=== PATIENT | female | born 1940 | race Caucasian/White ===

== ENCOUNTER 2024-11-28 13:14 | Outpatient (CLI) | payer MEDICARE, SELFPAY ==
--- NOTE | ~2024-11-28 | CT_ITS ---
CT of the Abdomen and Pelvis: Indication: Microscopic hematuria Technique: 2.5 mm axial scans were obtained through the abdomen and pelvis prior to and following in travenous administration of 130 cc of Omnipaque 350. Dose reduction technique was used on this scan b y utilizing automated exposure control and iterative reconstruction technique. The dose-length produc t (DLP) was 1622.71 mGy-cm. Findings: Scans through the lung bases are unremarkable. The liver, spleen, pancreas, and right adrenal gland are within normal limits. There is a 3.9 cm left adrenal mass with coarse calcification and macroscopic fat, compatible with myelolipoma. Small layer ing gallstones are present. Probable bilateral nonobstructing renal stones, largest in the left kidne y measuring 11 mm in diameter. No ureteral stone or hydronephrosis on either side. There are atherosc lerotic calcifications of the aorta. No lymphadenopathy. No bowel obstruction or bowel wall thickening. There is no evidence to suggest acute appendicitis. Images through the pelvis were performed. Probable diffuse urinary bladder wall thickening with mild perivesical inflammatory stranding. No adnexal mass. No ascites. There is mild compression deformity of L2, possibly acute. There is advanced degenerative change from L4 through S1.. Impression: Cystitis. Correlate with urinalysis. Nonobstructing nephrolithiasis, as detailed above. Cholelithiasis. L2 compression fracture, possibly acute. 3.9 cm left adrenal myelolipoma. Reviewed, dictated [place] [facility] Impression: Cystitis. Correlate with urinalysis. Nonobstructing nephrolithiasis, as detailed above. Cholelithiasis. L2 compression fracture, possibly acute. 3.9 cm left adrenal myelolipoma.
--- OUTSIDE RECORDS SUMMARY | 2024-11-28 13:18 | XMS_ITS | Clinical Summary ---
Author Organization [facility] Address [address] [place] [address] Care Team Providers Care Feller Seam Operator Name Role Phone Dean Britt MD Primary Care Provider [phone] Source Comments [facility],non-owned Affiliates and Associated Physician Practices is amultiple site organization consisting of ambulatory clinics and hospital sitesin [place], [place], [place] and [place]. This disclosure is being madepursuant to the Care Everywhere program and may not contain all information available regarding this patient. Last updated [facility] Allergies Active Allergy Reactions Criticality Noted Date Comments Ampicillin Urticaria 06/13/2010 Codeine Rash Low 06/13/2010 Acetaminophen Rash Low 06/13/2010 Medications * Be aware that medications may not be up to date on this document. Alwaysverify current medications with the patient. niacin CR (NIASPAN) 500 MG tablet Take 500 mg by mouth at bedtime. Active therapeutic multivitamin-m inerals (THERAGRAN-M) tablet Take 1 Tab by mouth daily with food. Active bimatoprost (LUMIGAN) 0.03 % ophthalmic solution Instill 1 Drop into both eyes at bedtime. Active DULoxetine (CYMBALTA) 60 MG capsuleIndicat ions:Elevated liver enzymes Take 60 mg by mouth every morning 8 Active BYDUREON 2 MG injectionIndic ations:Elevate d liver enzymes 2 mg by Injection route every 7 days 8 Active glimepiride (AMARYL) 2 MG tabletIndicati ons:Elevated liver enzymes Take 2 mg by mouth 2 times daily 8 Active levothyroxine (SYNTHROID) 50 MCG tabletIndicati ons:Elevated liver enzymes Take 50 mcg by mouth daily before breakfast 8 Active sotalol, AF, 80 MG tabletIndicati ons:Elevated liver enzymes Take 80 mg by mouth 2 times daily 8 Active cetirizine (ZYRTEC ALLERGY) 10 MG tabletIndicati ons:Elevated liver enzymes Take 10 mg by mouth once daily as needed Active alirocumab (PRALUENT) 150 MG/ML injectionIndic ations:Elevate d liver enzymes Inject 150 mg subcutaneously every 14 days Active aspirin (ASPIRIN) 325 MG tablet Take 325 mg by mouth once daily Active vitamin E (TOCOPHERYL) 400 UNIT capsule Take 400 Units by mouth once daily Active Multiple Vitamins-Juana Diaz als (PRESERVISION AREDS) Take 1 capsule by mouth 2 times daily Active fish oil/omega-3 fatty acids (PROMEGA;CARDI -OMEGA 3) 1000 MG capsule Take 2,000 mg by mouth 2 times daily with morning and evening meal Active metFORMIN ER 24hr (GLUCOPHAGE XR) 500 MG tablet Take 2 tablets by mouth daily with dinner Resume 08/30. 9 Active lisinopril (PRINIVIL; ZESTRIL) 20 MG tabletIndicati ons:Elevated liver enzymes Take 1 tablet by mouth 2 times daily 9 Active furosemide (LASIX) 20 MG tablet Take 20 mg by mouth as needed Active amitriptyline (ELAVIL) 12.5 MG tablet Take 25 mg by mouth at bedtime Active Insulin Degludec (TRESIBA) 100 UNIT/ML SOLN Inject 36 Units subcutaneously at bedtime Active apixaban (ELIQUIS) 5 MG tablet Take 1 tablet by mouth 2 times daily 180 tablet 3 9 Active Active Problems Problem Noted Date Diagnosed Date Bilateral carotid artery stenosis 08/27/2018 Cerebrovascular accident (CVA) 07/31/2018 Metabolic syndrome 01/18/2018 NAFLD (nonalcoholic fatty liver disease) 018 Overview (03/12/2018): [place] 01/2017, Hepatomegaly 19 cm 03/12/18 Fibroscan CAP 395, E 9.8 kPa Elevated liver enzymes 01/17/2018 Essential hypertension 01/17/2018 Atrial fibrillation 01/17/2018 Other hyperlipidemia 01/17/2018 Diabetes mellitus type 2, controlled, without co mplications 01/17/2018 Immunizations Immunization Administration Dates Next Due PNEUMOCOCCAL PPSV23 06/14/2010 Social History Tobacco Use Types Packs/Day Years Used Date Smoking Tobacco: Never Smokeless Tobacco: Never Alcohol Use Standard Drinks/Week Comments Yes 0 (1 standard drink = 0.6 oz pur e alcohol) Rarely Comments Unknown Sex and Gender Information Value Date Recorded Sex Assigned at Not on file Legal Sex Female 9:55 AM 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 SERVICES ANALYST Gender Identity Not on file Sexual Orientation Not on file Last Filed Vital Signs Vital Sign Reading Time Taken Comments Blood Pressure 136/64 10/23/2018 12:06 PM CDT Pulse 71 10/23/2018 12:06 PM CDT Temperature 36.7 C (98.1 F) 08/28/2018 12:00 PM CDT Respiratory Rate 18 10/23/2018 12:06 PM CDT Oxygen Saturation 97% 10/23/2018 12:06 PM CDT Inhaled Oxygen Concentration 21% 06/15/2010 1 0:35 AM BUSINESS SERVICES ANALYST Weight 78.5 kg (173 lb) 10/23/2018 12:06 PM CDT Height 157.5 cm (5' 2) 10/23/2018 12:06 PM CDT Body Mass Index 31.64 10/23/2018 12:06 PM CDT Plan of Treatment Health Maintenance Due Date Last Done Comments BONE DENSITY TESTING 1942 DTAP/TDAP/TD VACCINES (1 - Tdap) 1961 DIABETES-STATIN 1982 ZOSTER VACCINE (1 of 2) 1992 PNEUMOCOCCAL VACCINE 50+ (2 of 2 - PCV) 06/14/2011 06/14/2010 Respiratory Syncytial Virus (RSV) Vaccine Pt: or over 60 yrs (1 - 1-dose 75+ series) 2017 DIABETES-FOOT EXAM WITH MONOFILAMENT 08/05/2018 DIABETES-HGB A1C 02/01/2019 08/01/2018, 11/30/2017 DIABETES-SERUM CREATININE 08/28/20192018, 11/30/2017, 06/14/2010 COVID-19 VACCINE ( - 2023- season) 2024 DEPRESSION SCREENING 05/07/2024 DIABETES - URINE PROTEIN SCREENING 05/07/2024 INFLUENZA VACCINE (#1) 2025 8, 02/27/2017, 02/20/2014, Additional history exists HEPATITIS B VACCINE Aged Out No longe r eligible based on patient's age to complete this topic HIB VACCINE Aged Out No longer eligi ble based on patient's age to complete this topic HPV VACCINE Aged Out No longer eligi ble based on patient's age to complete this topic MENINGOCOCCAL (Group B) VACCINE SHARED DECISION-MAKING Aged Out No longer eligible based on patient's age to complete this topic MENINGOCOCCAL GROUPS A/C/Y/W VACCINE Aged Out No longer eligible based on patient's age to complete this topic Procedures Procedure Name Priority Date/Time Associated Diagnosis Comments BASIC METABOLIC PANEL (CALCIUM TOTAL) Routine 08/27/2018 8:43 AM CDT Bilateral carotid artery stenosis HEMOGLOBIN A1C AM Draw 08/01/2018 4:16 AM CDT from Last 3 Months or Most Recently Relevant to Health Maintenance Results * (ABNORMAL) BASIC METABOLIC PANEL (CALCIUM TOTAL) (08/27/2018 8:43 AM CDT) [facility] Glucose 212(H) 74 - 106 mg/dL 08/27/2018 9:03 AM CDT [facility] Sodium 136 136 - 145 mmol/L 08/27/2018 9:03 AM CDT [facility] Potassium 4.5 3.5 - 5.1 mmol/L 08/27/2018 9:03 AM CDT [facility] Chloride 102 98 - 107 mmol/L 08/27/2018 9:03 AM CDT [facility] CO2 23 23 - 31 mmol/L 08/27/2018 9:03 AM CDT [facility] Calcium 9.1 8.4 - 10.2 mg/dL 08/27/2018 9:03 AM CDT [facility] Anion Gap 11 8 - 16 mmol/L 08/27/2018 9:03 AM CDT [facility] BUN 17 9.8 - 20.1 mg/dL 08/27/2018 9:03 AM CDT [facility] Creatinine 0.52(L) 0.55 - 1.02 mg/dL 08/27/2018 9:03 AM CDT [facility] eGFR by MDRD >60 mL/min/1.7 3m2 08/27/2018 9:03 AM CDT [facility] eGFR by MDRD >60 mL/min/1.7 3m2 08/27/2018 9:03 AM CDT [facility] Blood BLOOD SPECIMEN / Unknown Venipuncture / Unknown 08/27/2018 8:43 AM CDT 08/27/2018 8:44 AM CDT Davi Briceno MD LAB - CHEMISTRY ORDERABLES Fi nal Result Performing Organization Address [facility] de Phone Number [facility] [address] [place] [address] * (ABNORMAL) HEMOGLOBIN A1C (08/01/2018 4:16 AM CDT) [facility] Hemoglobin A1c 7.5(H) 4.0 - 6.1 % 08/01/2018 6:06 AM CDT [facility] Estimated Average Glucose 169 mg/dL 08/01/2018 6:06 AM CDT [facility] Blood BLOOD SPECIMEN / Unknown Venipuncture / Unknown 08/01/2018 4:16 AM CDT 08/01/2018 5:48 AM CDT Narrative [facility] - 08/01/2018 6:06 AM CDT Attention clinician: Reference Range has changed. Davi Briceno MD LAB - CHEMISTRY ORDERABLES Fi nal Result Performing Organization Address [facility] de Phone Number [facility] [id number] [place] [phone] from Last 3 Months or Most Recently Relevant to Health Maintenance Insurance [facility] MEDICARE ADV [facility] MEDICARE ADV Advance Directives * Full Code (Latest Code Status on File) Date Activated Date Inactivated Comments 07/31/2018 8:56 PM 08/02/2018 5:57 PM * Full Code Date Activated Date Inactivated Comments 06/13/2010 10:48 PM 06/16/2010 12:33 AM Care Teams Feller Seam Operator Relationship Specialty Start Date End Date Dean Britt MD PCP - General 01/17/18
--- OUTSIDE RECORDS SUMMARY | 2024-11-28 13:18 | XMS_ITS | Data Portability ---
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 Name Role Phone HUMPHREY BRITT Primary Care Provider GEOFFREY PRATT Referring Provider [phone] HUMPHREY BRITT Primary Care Provider Assessment Encounter Date Assessment Date Assessment LastModified by Organization Details LastModified Time 12/18/2022 12/18/2022 Blood work order diagnosis discussed immunization given follow-up in 4 months Not available 12/18/2022 22:53:29 04/23/2023 04/23/2023 Obtain labs we will see whether we can get her approved for Ozempic I will get a thyroid ultrasound Not available 04/27/2023 21:04:42 03/26/2024 03/26/2024 83-year-old patient presents today with left ankle pain after an injury on 03/16. She states she was standing when her foot rolled. She felt pain in the ankle. She presented to the emergency room where x-rays were taken and she was placed in a boot. She presents today in the boot. States her pain is 1/10. She states she has tried walking without the boot and feels minimal pain. She is not taking any medications for pain. Review of systems per patient questionnaire Imaging: X-rays reviewed show possible avulsion of the lateral malleolus on x-rays taken the day after her injury. X-rays today show no acute bony abnormality or fracture. physical exam: Slightly antalgic gait using a walker without the boot. Tenderness to palpitation over lateral malleolus. No pain over the soft tissues, medial ankle, or over foot. Able to perform gentle ankle range of motion and wiggle toes. Sensation intact throughout. She would like to come out of the boot. We will fit her for a lace-up ankle brace and have her slowly transition from the boot into the brace. We discussed wearing a supportive shoe and continuing to use the walker if that is what she normally does. She states that she has had ankle sprains in the past. We discussed that physical therapy may be beneficial to help strengthen the ankle. She is not interested in that at this time. We can see her back as needed for pain. She is in agreement with this plan. [email or web address] Not available 03/26/2024 16:38:56 07/23/2024 07/23/2024 Time spent with patient included: preparing to see patient by reviewing tests, obtaining and reviewing history, medical examination and evaluation, counseling and educating the patient, ordering medications and tests, documenting clinical information in EHR, independently interpreting results and communicating results to the patient for a total of 52 minutes. [email or web address] Not available 07/24/2024 09:15:53 Plan of Treatment Reminders Order Date Submit Date Provider Last Modified By Organization Details Last Modified Time Details Appointments None recorded. Lab alpha-1-an titrypsin (aat) phenotype, serum 2024 025 [facility] (Lab), [address] [place], [address], 5 08:54:16 BNP (B-type natriureti c peptide), serum or plasma 2024 025 [facility] (Lab), [address] [place], [address], 5 23:45:58 ige, total, serum [email or web address] [place] [address] (Lab), [address] [place], [address], 5 10:43:57 tb (M tuberculos is), ifn-gamma esme, blood [address] [place] [address] (Lab), [address] [place], [address], 5 10:43:58 igg subclasses 1+2+3+4, serum 2024 025 [email or web address] 2 [facility] (Lab), [address] [place], [address], 5 10:43:58 respirator y allergen panel, [facility] A, serum 2024 025 2 [facility] (Lab), [address] [place], [address], 5 10:43:58 respirator y allergen panel - [facility] b 2024 025 [email or web address] 2 [facility] (Lab), [address] [place], [address], 5 10:43:58 eosinophil s, quant, blood 2024 025 [email or web address] 2 [facility] (Lab), [address] [place], [address], 5 10:43:58 glycohemog lobin, total, blood 2022 023 [facility] (Lab), [address] [place], [address], 3 20:54:14 lipid panel, serum 2022 023 [facility] (Lab), [address] [place], [address], 3 18:32:34 CMP, serum or plasma 2022 023 [facility] (Lab), [address] [place], [address], 3 18:32:45 CBC w/ auto diff 2022 023 [facility] (Lab), [address] [place], [address], 3 18:24:32 T4, free, serum 2022 023 [facility] (Lab), [address] [place], [address], 3 18:52:50 TSH, serum or plasma 2022 023 [facility] (Lab), [address] [place], [address], 3 18:56:04 T3, free, serum or plasma 2022 023 [facility] (Lab), [address] [place], [address], 3 18:52:55 glycohemog lobin, total, blood 2022 023 [facility] (Lab), [address] [place], [address], 3 20:00:08 T4, free, serum 2022 023 [facility] (Lab), [address] [place], [address], 3 18:07:48 T3, free, serum or plasma 2022 023 [facility] (Lab), [address] [place], [address], 3 18:07:52 TSH, serum or plasma 2022 023 [facility] (Lab), [address] [place], [address], 3 18:18:10 CBC w/ auto diff 2022 023 [facility] (Lab), [address] [place], [address], 3 17:08:12 CMP, serum or plasma 2022 023 [facility] (Lab), [address] [place], [address], 3 18:06:07 lipid panel, serum 2022 023 [facility] (Lab), [address] [place], [address], 3 18:06:10 Referral None recorded. Procedures None recorded. Surgeries None recorded. Imaging polysomnog suzi, diagnostic , 6 yrs or older - Updated order 2024 025 [facility], [address] [place], [address], 5 12:41:33 XR, chest, 2 view 2024 [email or web address] [place] [address] ([facility]), [address] [place], [address], 5 09:25:20 US, thyroid 2022 023 cyl [facility] ([facility]), [address] [place], [address], 4 10:44:46 Medication Orders Ozempic 0.25 mg or 0.5 mg (2 mg/3 mL) subcutaneo us pen injector 2022 023 [facility], [address] , [place], [place], [id number], 4 13:40:23 fluconazol e 150 mg tablet 2022 023 [email or web address] [facility] #24671, [address], [place], [place], [id number], 4 16:02:06 Tresiba FlexTouch U-200 insulin 200 unit/mL (3 mL) subcutaneo pen [address] [facility]21964, [address], [place], [place], [id number], 4 13:38:44 glipizide 5 mg tablet [address] [facility]37664, [address], [place], [place], [id number], 4 13:39:08 Bydureon BCise 2 mg/0.85 mL [facility] tor [address] [facility]16174, [address], [place], [place], [id number], 4 13:39:31 metformin ER 500 mg tablet,ext ended release 24 hr [address] [facility]85502, [address], [place], [place], [id number], 4 13:38:33 levothyrox ine 50 mcg tablet [address] [facility] #43072, [address], [place], [place], [id number], 4 13:39:55 Patient TargetsNo targets recorded. Patient Instructions Encounter Date Encounter Id Patient Instructions Last Modified By Organization Details Last Modified Time 07/23/2024 [id number] complete PFT w/ post bronchodilator spirometry* [email or web address] Not available 10/07/2024 14:39:14 Reason for Referral None Reported. Results Created Date Observation Date Name Description Value Unit Range Abnormal Flag Note LastModifiedBy Organization Detail LastModifiedTime 12/19/19 23 12/18/2022 CBC/C OMPLE TE BLD COUNT W/DIF F white blood cells 8.6 x10'3 /uL 4.2-10 .8 Not Available [facility] (Lab) [address] [place], [address], 12/18/2022 17:37:30 12/19/19 23 12/18/2022 CBC/C OMPLE TE BLD COUNT W/DIF F red blood cells 5.59 x10'6 /uL 3.80-5 .20 high Not Available [facility] (Lab) [address] [place], [address], 12/18/2022 17:37:30 12/19/19 23 12/18/2022 CBC/C OMPLE TE BLD COUNT W/DIF F hemoglobin 13.9 g/dL 12.0-1 5.6 Not Available [facility] (Lab) [address] [place], [address], 12/18/2022 17:37:30 12/19/19 23 12/18/2022 CBC/C OMPLE TE BLD COUNT W/DIF F hematocrit 47.1 % 35.7-4 5.7 high Not Available [facility] (Lab) [address] [place], [address], 12/18/2022 17:37:30 12/19/19 23 12/18/2022 CBC/C OMPLE TE BLD COUNT W/DIF F mean red cell volume 84.3 fL 82.0-9 9.0 Not Available [facility] (Lab) [address] [place], [address], 12/18/2022 17:37:30 12/19/19 23 12/18/2022 CBC/C OMPLE TE BLD COUNT W/DIF F mean red cell hemoglobin 24.9 pg 27.0-3 3.0 low Not Available [facility] (Lab) [address] [place], [address], 12/18/2022 17:37:30 12/19/19 23 12/18/2022 CBC/C OMPLE TE BLD COUNT W/DIF F mean RBC HGB concentratio n 29.5 g/dL 31.0-3 6.0 low Not Available [facility] (Lab) [address] [place], [address], 12/18/2022 17:37:30 12/19/19 23 12/18/2022 CBC/C OMPLE TE BLD COUNT W/DIF F red cell distribution width 19.6 % 11.8-1 5.5 high Not Available [facility] (Lab) [address] [place], [address], 12/18/2022 17:37:30 12/19/19 23 12/18/2022 CBC/C OMPLE TE BLD COUNT W/DIF F platelets 302 x10'3 /uL 150-40 0 Not Available [facility] (Lab) [address] [place], [address], 12/18/2022 17:37:30 12/19/19 23 12/18/2022 CBC/C OMPLE TE BLD COUNT W/DIF F mean platelet volume 10.7 fL 9.0-12 .4 Not Available [facility] (Lab) [address] [place], [address], 12/18/2022 17:37:30 12/19/19 23 12/18/2022 CBC/C OMPLE TE BLD COUNT W/DIF F neutrophils 77.4 % 39.0-7 2.0 high Not Available [facility] (Lab) [address] [place], [address], 12/18/2022 17:37:30 12/19/19 23 12/18/2022 CBC/C OMPLE TE BLD COUNT W/DIF F lymphocytes 11.8 % 16.0-4 7.0 low Not Available [facility] (Lab) [address] [place], [address], 12/18/2022 17:37:30 12/19/19 23 12/18/2022 CBC/C OMPLE TE BLD COUNT W/DIF F monocytes 9.0 % 5.0-12 .0 Not Available [facility] (Lab) [address] [place], [address], 12/18/2022 17:37:30 12/19/19 23 12/18/2022 CBC/C OMPLE TE BLD COUNT W/DIF F eosinophils 0.9 % 1.0-7. 0 low Not Available [facility] (Lab) [address] [place], [address], 12/18/2022 17:37:30 12/19/19 23 12/18/2022 CBC/C OMPLE TE BLD COUNT W/DIF F basophils 0.6 % 0.0-2. 0 Not Available [facility] (Lab) [address] [place], [address], 12/18/2022 17:37:30 12/19/19 23 12/18/2022 CBC/C OMPLE TE BLD COUNT W/DIF F immature granulocytes 0.3 % 0.00-0 .50 Not Available [facility] (Lab) [address] [place], [address], 12/18/2022 17:37:30 12/19/19 23 12/18/2022 CBC/C OMPLE TE BLD COUNT W/DIF F neutrophils, absolute count 6.64 x10'3 /uL 1.5-8. 0 Not Available [facility] (Lab) [address] [place], [address], 12/18/2022 17:37:30 12/19/19 23 12/18/2022 CBC/C OMPLE TE BLD COUNT W/DIF F lymphocytes, absolute count 1.01 x10'3 /uL 1.07-3 .43 low Not Available [facility] (Lab) [address] [place], [address], 12/18/2022 17:37:30 12/19/19 23 12/18/2022 CBC/C OMPLE TE BLD COUNT W/DIF F monocytes, absolute count 0.77 x10'3 /uL 0.29-0 .99 Not Available [facility] (Lab) [address] [place], [address], 12/18/2022 17:37:30 12/19/19 23 12/18/2022 CBC/C OMPLE TE BLD COUNT W/DIF F eosinophils, absolute count 0.08 x10'3 /uL 0.02-0 .53 Not Available [facility] (Lab) [address] [place], [address], 12/18/2022 17:37:30 12/19/19 23 12/18/2022 CBC/C OMPLE TE BLD COUNT W/DIF F basophils, absolute count 0.05 x10'3 /uL 0.01-0 .08 Not Available [facility] (Lab) [address] [place], [address], 12/18/2022 17:37:30 12/19/19 23 12/18/2022 CBC/C OMPLE TE BLD COUNT W/DIF F immature granulocytes ,absolute 0.03 x10'3 /uL 0.00-0 .05 Not Available [facility] (Lab) [address] [place], [address], 12/18/2022 17:37:30 12/19/19 23 12/18/2022 CBC/C OMPLE TE BLD COUNT W/DIF F nucleated red blood cells 0.0 % -0 Not Available [facility] (Lab) [address] [place], [address], 12/18/2022 17:37:30 12/19/19 23 12/18/2022 CBC/C OMPLE TE BLD COUNT W/DIF F NRBC# 0.00 x10'3 /uL Not Available [facility] (Lab) [address] [place], [address], 12/18/2022 17:37:30 12/19/19 23 12/18/2022 CBC/C OMPLE TE BLD COUNT W/DIF F anisocytosis 1+ Not Available [facility] (Lab) [address] [place], [address], 12/18/2022 17:37:30 12/19/19 23 12/18/2022 CBC/C OMPLE TE BLD COUNT W/DIF F poikilocytos is 1+ Not Available [facility] (Lab) [address] [place], [address], 12/18/2022 17:37:30 12/19/19 23 12/18/2022 CBC/C OMPLE TE BLD COUNT W/DIF F hypochromia 1+ Not Available [facility] (Lab) [address] [place], [address], 12/18/2022 17:37:30 12/19/19 23 12/18/2022 COMPR EHENS MICHELLE METAB OLIC PANEL sodium 135 mmol/ L 137-14 5 low Not Available [facility] (Lab) [address] [place], [address], 12/18/2022 18:06:06 12/19/19 23 12/18/2022 COMPR EHENS MICHELLE METAB OLIC PANEL potassium 4.7 mmol/ L 3.5-5. 1 Not Available [facility] (Lab) [address] [place], [address], 12/18/2022 18:06:06 12/19/19 23 12/18/2022 COMPR EHENS MICHELLE METAB OLIC PANEL chloride 99 mmol/ L 98-107 Not Available [facility] (Lab) [address] [place], [address], 12/18/2022 18:06:06 12/19/19 23 12/18/2022 COMPR EHENS MICHELLE METAB OLIC PANEL carbon dioxide 27 mmol/ L 22-30 Not Available [facility] (Lab) [address] [place], [address], 12/18/2022 18:06:06 12/19/19 23 12/18/2022 COMPR EHENS MICHELLE METAB OLIC PANEL anion gap 13.7 mmol/ L 14-22 low Not Available [facility] (Lab) [address] [place], [address], 12/18/2022 18:06:06 12/19/19 23 12/18/2022 COMPR EHENS MICHELLE METAB OLIC PANEL glucose 171 mg/dL 70-99 high Not Available [facility] (Lab) [address] [place], [address], 12/18/2022 18:06:06 12/19/19 23 12/18/2022 COMPR EHENS MICHELLE METAB OLIC PANEL BUN 12 mg/dL 8-19 Not Available [facility] (Lab) [address] [place], [address], 12/18/2022 18:06:06 12/19/19 23 12/18/2022 COMPR EHENS MICHELLE METAB OLIC PANEL creatinine 0.49 mg/dL 0.66-1 .25 low Not Available [facility] (Lab) [address] [place], [address], 12/18/2022 18:06:06 12/19/19 23 12/18/2022 COMPR EHENS MICHELLE METAB OLIC PANEL GFR >60 Refer ence Range : [place] ge GFR Healt hy Adult : >60 mL/mi n/1.7 3 m2 Chron ic Kidne y Disea se: 15-60 mL/mi n/1.7 3 m2 Kidne y Failu re: <15/m L/min /1.73 m2 www.n iddk. nih.g ov The MDRD study equat ion has not been valid ated in child sridevi <18 years of age; pregn ant women ; the elder ly >85 years of age; or in some racia l or ethni c subgr oups, such as Hispa nics. Outsi de the valid ated antione eters , estim ated GFR is less accur ate, requi ring clini lin judgm ent on a case- by-ca se basis . Clini lin inter preta tion for other races and ages must be made by the clini david. The MDRD study equat ion has not been valid ated for the evalu ation of serum creat inine relat ed to nutri rafal l statu s or medic ation usage . For perso ns <18 years of age, a pedia tric GFR calcu lator is avail able on the [facility] websi te: https ://savita loomis.malik raphael/pr nick ahmadi s/kdo qi/gf r_cal culat or Not Available [facility] (Lab) [address] [place], [address], 12/18/2022 18:06:06 12/19/1912/18/2022 COMPR EHENS MICHELLE METAB OLIC PANEL alkaline phosphatase 91 U/L 38-126 Not Available [facility] (Lab) [address] [place], [address], 12/18/2022 18:06:06 12/19/1912/18/2022 COMPR EHENS MICHELLE METAB OLIC PANEL alanine aminotransfe rase 31 U/L 0-35 Not Available [facility] (Lab) [address] [place], [address], 12/18/2022 18:06:06 12/19/19 23 12/18/2022 COMPR EHENS MICHELLE METAB OLIC PANEL aspartate aminotransfe rase 39 U/L 15-37 high Not Available [facility] (Lab) [address] [place], [address], 12/18/2022 18:06:06 12/19/19 23 12/18/2022 COMPR EHENS MICHELLE METAB OLIC PANEL bilirubin, total 0.40 mg/dL 0.20-1 .30 Not Available [facility] (Lab) [address] [place], [address], 12/18/2022 18:06:06 12/19/19 23 12/18/2022 COMPR EHENS MICHELLE METAB OLIC PANEL calcium 8.4 mg/dL 8.4-10 .2 Not Available [facility] (Lab) [address] [place], [address], 12/18/2022 18:06:06 12/19/19 23 12/18/2022 COMPR EHENS MICHELLE METAB OLIC PANEL total protein 7.4 g/dL 6.3-8. 2 Not Available [facility] (Lab) [address] [place], [address], 12/18/2022 18:06:06 12/19/19 23 12/18/2022 COMPR EHENS MICHELLE METAB OLIC PANEL albumin 4.2 g/dL 3.0-4. 4 Not Available [facility] (Lab) [address] [place], [address], 12/18/2022 18:06:06 12/19/19 23 12/18/2022 COMPR EHENS MICHELLE METAB OLIC PANEL globulin 3.2 g/dL 2.6-4. 2 Not Available [facility] (Lab) [address] [place], [address], 12/18/2022 18:06:06 12/19/19 23 12/18/2022 COMPR EHENS MICHELLE METAB OLIC PANEL A/G ratio 1.3 ratio 1.0-2. 0 Not Available [facility] (Lab) [address] [place], [address], 12/18/2022 18:06:06 12/19/19 23 12/18/2022 LIPID PANEL cholesterol 92 mg/dL 140-19 9 low NIH RAIN NSUS RECOM MENDA TION FOR KUSUM STERO L: ADULT CHILD LOW RISK: <200 <170 BORDE RLINE : <200- 239 ----- HIGH RISK: >240 >200 Not Available [facility] (Lab) [address] [place], [address], 12/18/2022 18:06:10 12/19/19 23 12/18/2022 LIPID PANEL triglyceride s 175 mg/dL 0-150 high NIH RAIN NSUS REPOR T RECOM MENDA TION FOR TRIGL YCERI FRANCISCO: ADULT CHILD LOW RISK: <150 ----- BODER LINE: 150-1 99 ----- HIGH RISK: >200 ----- Not Available [facility] (Lab) [address] [place] [address], [address], 12/18/2022 18:06:10 12/19/19 23 12/18/2022 LIPID PANEL HDL cholesterol 51 mg/dL 40- Not Available [facility] (Lab) [address] [place] [address], [address], 12/18/2022 18:06:10 12/19/19 23 12/18/2022 LIPID PANEL LDL cholesterol, calculated 6 mg/dL 0-130 NIH RAIN NSUS REPOR T RECOM MENDA TIONS FOR LDL: ADULT CHILD LOW RISK <130 <110 (OPTI MAL LDL) <100 ----- BORDE RLINE : 130-1 59 ----- HIGH RISK: >160 >130 A TRIGL YCERI DE RESUL T >400 INVAL IDATE S THE CALCU LATIO N FOR LDL FRACT IONAT ION - THE LDL RESUL T WILL NOT BE REPOR ENA. Not Available [facility] (Lab) [address] [place], [address], 12/18/2022 18:06:10 12/19/19 23 12/18/2022 T4 FREE free T4 1.29 NG/dL 0.78-2 .19 Not Available [facility] (Lab) [address] [place], [address], 12/18/2022 18:07:48 12/19/19 23 12/18/2022 T3 FREE free T3 2.9 pg/mL 2.77-5 .27 Not Available [facility] (Lab) [address] [place], [address], 12/18/2022 18:07:52 12/19/19 23 12/18/2022 TSH thyroid-stim ulating hormone 1.740 uIU/m L 0.465- 4.680 Not Available [facility] (Lab) [address] [place], [address], 12/18/2022 18:18:10 12/19/19 23 12/18/2022 HEMOG LOBIN A1C HA1C 9.3 % 4.0-6. 0 high Diabe meg Scree abran Crite zuleika: <5.7% Consi stent with absen ce of diabe meg 5.7-6 .4% Consi stent with incre ased risk for diabe meg (pred iabet es) >OR=6 .5% Consi stent with diabe meg REFER ENCE: Diabe meg Care 2016, 39(Alejandro ppl.1 ):s13 -s22 Not Available [facility] (Lab) [address] [place], [address], 12/18/2022 20:00:08 03/07/20 23 03/07/2023 C DIFFI CILE TOXIN /EPI, DNA toxigenic C.difficile NEGATI VE Not Available [facility] (Lab) [address] [place], [address], 03/07/2023 22:19:10 03/07/20 23 03/07/2023 C DIFFI CILE TOXIN /EPI, DNA 027-nap1-bi strain NEGATI VE 027-N API-B 1 STRAI N RESUL TS ARE CONSI DERED TO BE PRESU MPTIV E. Not Available [facility] (Lab) [address] [place], [address], 03/07/2023 22:19:10 04/23/20 23 04/23/2023 CBC/C OMPLE TE BLD COUNT W/DIF F white blood cells 7.5 x10'3 /uL 4.2-10 .8 Not Available [facility] (Lab) [address] [place], [address], 04/23/2023 18:24:32 04/23/20 23 04/23/2023 CBC/C OMPLE TE BLD COUNT W/DIF F red blood cells 5.48 x10'6 /uL 3.80-5 .20 high Not Available [facility] (Lab) [address] [place], [address], 04/23/2023 18:24:32 04/23/20 23 04/23/2023 CBC/C OMPLE TE BLD COUNT W/DIF F hemoglobin 15.0 g/dL 12.0-1 5.6 Not Available [facility] (Lab) [address] [place], [address], 04/23/2023 18:24:32 04/23/20 23 04/23/2023 CBC/C OMPLE TE BLD COUNT W/DIF F hematocrit 49.0 % 35.7-4 5.7 high Not Available [facility] (Lab) [address] [place], [address], 04/23/2023 18:24:32 04/23/20 23 04/23/2023 CBC/C OMPLE TE BLD COUNT W/DIF F mean red cell volume 89.4 fL 82.0-9 9.0 Not Available [facility] (Lab) [address] [place], [address], 04/23/2023 18:24:32 04/23/20 23 04/23/2023 CBC/C OMPLE TE BLD COUNT W/DIF F mean red cell hemoglobin 27.4 pg 27.0-3 3.0 Not Available [facility] (Lab) [address] [place], [address], 04/23/2023 18:24:32 04/23/20 23 04/23/2023 CBC/C OMPLE TE BLD COUNT W/DIF F mean RBC HGB concentratio n 30.6 g/dL 31.0-3 6.0 low Not Available [facility] (Lab) [address] [facility] [place], [address], 04/23/2023 18:24:32 04/23/20 23 04/23/2023 CBC/C OMPLE TE BLD COUNT W/DIF F red cell distribution width 15.7 % 11.8-1 5.5 high Not Available [facility] (Lab) [address] [place], [address], 04/23/2023 18:24:32 04/23/20 23 04/23/2023 CBC/C OMPLE TE BLD COUNT W/DIF F platelets 322 x10'3 /uL 150-40 0 Not Available [facility] (Lab) [address] [place], [address], 04/23/2023 18:24:32 04/23/20 23 04/23/2023 CBC/C OMPLE TE BLD COUNT W/DIF F mean platelet volume 10.5 fL 9.0-12 .4 Not Available [facility] (Lab) [address] [place], [address], 04/23/2023 18:24:32 04/23/20 23 04/23/2023 CBC/C OMPLE TE BLD COUNT W/DIF F neutrophils 75.1 % 39.0-7 2.0 high Not Available [facility] (Lab) [address] [place], [address], 04/23/2023 18:24:32 04/23/20 23 04/23/2023 CBC/C OMPLE TE BLD COUNT W/DIF F lymphocytes 13.6 % 16.0-4 7.0 low Not Available [facility] (Lab) [address] [place], [address], 04/23/2023 18:24:32 04/23/20 23 04/23/2023 CBC/C OMPLE TE BLD COUNT W/DIF F monocytes 9.7 % 5.0-12 .0 Not Available [facility] (Lab) [address] [place], [address], 04/23/2023 18:24:32 04/23/20 23 04/23/2023 CBC/C OMPLE TE BLD COUNT W/DIF F eosinophils 0.5 % 1.0-7. 0 low Not Available [facility] (Lab) [address] [place], [address], 04/23/2023 18:24:32 04/23/20 23 04/23/2023 CBC/C OMPLE TE BLD COUNT W/DIF F basophils 0.8 % 0.0-2. 0 Not Available [facility] (Lab) [address] [place], [address], 04/23/2023 18:24:32 04/23/20 23 04/23/2023 CBC/C OMPLE TE BLD COUNT W/DIF F immature granulocytes 0.3 % 0.00-0 .50 Not Available [facility] (Lab) [address] [place], [address], 04/23/2023 18:24:32 04/23/20 23 04/23/2023 CBC/C OMPLE TE BLD COUNT W/DIF F neutrophils, absolute count 5.64 x10'3 /uL 1.5-8. 0 Not Available [facility] (Lab) [address] [place], [address], 04/23/2023 18:24:32 04/23/20 23 04/23/2023 CBC/C OMPLE TE BLD COUNT W/DIF F lymphocytes, absolute count 1.02 x10'3 /uL 1.07-3 .43 low Not Available [facility] (Lab) [address] [facility] [place], [address], 04/23/2023 18:24:32 04/23/20 23 04/23/2023 CBC/C OMPLE TE BLD COUNT W/DIF F monocytes, absolute count 0.73 x10'3 /uL 0.29-0 .99 Not Available [facility] (Lab) [address] [place], [address], 04/23/2023 18:24:32 04/23/20 23 04/23/2023 CBC/C OMPLE TE BLD COUNT W/DIF F eosinophils, absolute count 0.04 x10'3 /uL 0.02-0 .53 Not Available [facility] (Lab) [address] [place], [address], 04/23/2023 18:24:32 04/23/20 23 04/23/2023 CBC/C OMPLE TE BLD COUNT W/DIF F basophils, absolute count 0.06 x10'3 /uL 0.01-0 .08 Not Available [facility] (Lab) [address] [place], [address], 04/23/2023 18:24:32 04/23/20 23 04/23/2023 CBC/C OMPLE TE BLD COUNT W/DIF F immature granulocytes ,absolute 0.02 x10'3 /uL 0.00-0 .05 Not Available [facility] (Lab) [address] [place], [address], 04/23/2023 18:24:32 04/23/20 23 04/23/2023 CBC/C OMPLE TE BLD COUNT W/DIF F nucleated red blood cells 0.0 % -0 Not Available [facility] (Lab) [address] [place], [address], 04/23/2023 18:24:32 04/23/20 23 04/23/2023 CBC/C OMPLE TE BLD COUNT W/DIF F NRBC# 0.00 x10'3 /uL Not Available [facility] (Lab) [address] [place], [address], 04/23/2023 18:24:32 04/23/20 23 04/23/2023 LIPID PANEL cholesterol 106 mg/dL 140-19 9 low NIH RAIN NSUS RECOM MENDA TION FOR KUSUM STERO L: ADULT CHILD LOW RISK: <200 <170 BORDE RLINE : <200- 239 ----- HIGH RISK: >240 >200 Not Available [facility] (Lab) [address] [place], [address], 04/23/2023 18:32:34 04/23/20 23 04/23/2023 LIPID PANEL triglyceride s 188 mg/dL 0-150 high NIH RAIN NSUS REPOR T RECOM MENDA TION FOR TRIGL YCERI FRANCISCO: ADULT CHILD LOW RISK: <150 ----- BODER LINE: 150-1 99 ----- HIGH RISK: >200 ----- Not Available [facility] (Lab) [address] [place], [address], 04/23/2023 18:32:34 04/23/20 23 04/23/2023 LIPID PANEL HDL cholesterol 60 mg/dL 40- Not Available [facility] (Lab) [address] [place], [address], 04/23/2023 18:32:34 04/23/20 23 04/23/2023 LIPID PANEL LDL cholesterol, calculated 8 mg/dL 0-130 NIH RAIN NSUS REPOR T RECOM MENDA TIONS FOR LDL: ADULT CHILD LOW RISK <130 <110 (OPTI MAL LDL) <100 ----- BORDE RLINE : 130-1 59 ----- HIGH RISK: >160 >130 A TRIGL YCERI DE RESUL T >400 INVAL IDATE S THE CALCU LATIO N FOR LDL FRACT IONAT ION - THE LDL RESUL T WILL NOT BE REPOR ENA. Not Available [facility] (Lab) [address] [place], [address], 04/23/2023 18:32:34 04/23/2004/23/2023 COMPR EHENS MICHELLE METAB OLIC PANEL sodium 137 mmol/ L 137-14 5 Not Available [facility] (Lab) [address] [place], [address], 04/23/2023 18:32:45 04/23/20 23 04/23/2023 COMPR EHENS MICHELLE METAB OLIC PANEL potassium 4.6 mmol/ L 3.5-5. 1 Not Available [facility] (Lab) [address] [place], [address], 04/23/2023 18:32:45 04/23/20 23 04/23/2023 COMPR EHENS MICHELLE METAB OLIC PANEL chloride 100 mmol/ L 98-107 Not Available [facility] (Lab) [address] [place], [address], 04/23/2023 18:32:45 04/23/20 23 04/23/2023 COMPR EHENS MICHELLE METAB OLIC PANEL carbon dioxide 30 mmol/ L 22-30 Not Available [facility] (Lab) [address] [place], [address], 04/23/2023 18:32:45 04/23/20 23 04/23/2023 COMPR EHENS MICHELLE METAB OLIC PANEL anion gap 11.6 mmol/ L 14-22 low Not Available [facility] (Lab) [address] [place], [address], 04/23/2023 18:32:45 04/23/20 23 04/23/2023 COMPR EHENS MICHELLE METAB OLIC PANEL glucose 114 mg/dL 70-99 high Not Available [facility] (Lab) [address] [place], [address], 04/23/2023 18:32:45 04/23/20 23 04/23/2023 COMPR EHENS MICHELLE METAB OLIC PANEL BUN 14 mg/dL 8-19 Not Available [facility] (Lab) [address] [place], [address], 04/23/2023 18:32:45 04/23/20 23 04/23/2023 COMPR EHENS MICHELLE METAB OLIC PANEL creatinine 0.58 mg/dL 0.66-1 .25 low Not Available [facility] (Lab) [address] [place], [address], 04/23/2023 18:32:45 04/23/20 23 04/23/2023 COMPR EHENS MICHELLE METAB OLIC PANEL GFR >60 Refer ence Range : [place] ge GFR Healt hy Adult : >60 mL/mi n/1.7 3 m2 Chron ic Kidne y Disea se: 15-60 mL/mi n/1.7 3 m2 Kidne y Failu re: <15/m L/min /1.73 m2 www.n iddk. nih.g ov The MDRD study equat ion has not been valid ated in child sridevi <18 years of age; pregn ant women ; the elder ly >85 years of age; or in some racia l or ethni c subgr oups, such as Hispa nics. Outsi de the valid ated antione eters , estim ated GFR is less accur ate, requi ring clini lin judgm ent on a case- by-ca se basis . Clini lin inter preta tion for other races and ages must be made by the clini david. The MDRD study equat ion has not been valid ated for the evalu ation of serum creat inine relat ed to nutri rafal l statu s or medic ation usage . For perso ns <18 years of age, a pedia tric GFR calcu lator is avail able on the [facility] websi te: https ://savita calvo.buster loomis.o rg/pr ofess ional s/kdo qi/gf r_cal culat or Not Available [facility] (Lab) [address] [place], [address], 04/23/2023 18:32:45 04/23/20 23 04/23/2023 COMPR EHENS MICHELLE METAB OLIC PANEL alkaline phosphatase 76 U/L 38-126 Not Available [facility] (Lab) [address] [place], [address], 04/23/2023 18:32:45 04/23/20 23 04/23/2023 COMPR EHENS MICHELLE METAB OLIC PANEL alanine aminotransfe rase 33 U/L 0-35 Not Available [facility] (Lab) [address] [place], [address], 04/23/2023 18:32:45 04/23/20 23 04/23/2023 COMPR EHENS MICHELLE METAB OLIC PANEL aspartate aminotransfe rase 36 U/L 15-37 Not Available [facility] (Lab) [address] [place], [address], 04/23/2023 18:32:45 04/23/20 23 04/23/2023 COMPR EHENS MICHELLE METAB OLIC PANEL bilirubin, total 0.40 mg/dL 0.20-1 .30 Not Available [facility] (Lab) [address] [place], [address], 04/23/2023 18:32:45 04/23/20 23 04/23/2023 COMPR EHENS MICHELLE METAB OLIC PANEL calcium 9.0 mg/dL 8.4-10 .2 Not Available [facility] (Lab) [address] [place], [address], 04/23/2023 18:32:45 04/23/20 23 04/23/2023 COMPR EHENS MICHELLE METAB OLIC PANEL total protein 7.5 g/dL 6.3-8. 2 Not Available [facility] (Lab) [address] [place], [address], 04/23/2023 18:32:45 04/23/20 23 04/23/2023 COMPR EHENS MICHELLE METAB OLIC PANEL albumin 4.2 g/dL 3.0-4. 4 Not Available [facility] (Lab) [address] [facility] [place], [address], 04/23/2023 18:32:45 04/23/20 23 04/23/2023 COMPR EHENS MICHELLE METAB OLIC PANEL globulin 3.3 g/dL 2.6-4. 2 Not Available [facility] (Lab) [address] [place], [address], 04/23/2023 18:32:45 04/23/20 23 04/23/2023 COMPR EHENS MICHELLE METAB OLIC PANEL A/G ratio 1.3 ratio 1.0-2. 0 Not Available [facility] (Lab) [address] [place], [address], 04/23/2023 18:32:45 04/23/20 23 04/23/2023 T4 FREE free T4 1.37 NG/dL 0.78-2 .19 Not Available [facility] (Lab) [address] [place], [address], 04/23/2023 18:52:50 04/23/20 23 04/23/2023 T3 FREE free T3 3.7 pg/mL 2.77-5 .27 Not Available [facility] (Lab) [address] [place], [address], 04/23/2023 18:52:54 04/23/20 23 04/23/2023 TSH thyroid-stim ulating hormone 0.066 uIU/m L 0.465- 4.680 low Not Available [facility] (Lab) [address] [place], [address], 04/23/2023 18:56:04 04/23/20 23 04/23/2023 HEMOG LOBIN A1C HA1C 7.1 % 4.0-6. 0 high Diabe meg Scree abran Crite zuleika: <5.7% Consi stent with absen ce of diabe meg 5.7-6 .4% Consi stent with incre ased risk for diabe meg (pred iabet es) >OR=6 .5% Consi stent with diabe meg REFER ENCE: Diabe meg Care 2016, 39(Alejandro ppl.1 ):s13 -s22 Not Available [facility] (Lab) [address] [place], [address], 04/23/2023 20:54:14 04/18/20 23 04/17/2023 US, echoc ardio gram No observ ation record ed. [facility] [address] , [place], [address], 04/23/2023 15:10:27 04/18/20 23 04/17/2023 US, duple x, carot id arter y No observ ation record ed. [facility] [address], [place], [address], 04/23/2023 15:10:42 05/02/20 23 05/02/2023 US, thyro id [facility] [address] [place] [address] Patien t Name: ELLY WILLIAM Access ion #: [id number] Sex: F : 1940 6 Dictat ed By: Thaddeus Jacobs Attend ing Physic shireen: DENA BRITT Orderprice ng Physic shireen: DENA BRITT Exam Date: 2022 09:48 AM Exam Name: US NECK HEAD SOFT TISSUE Admitt ing Diagno sis(es ): ULTRAS OUND SOFT TISSUE [facility] INDICA TION: Hypoth yroidi sm TECHNI QUE: Multip le real time sonogr aphic images of the thyroi d were obtain ed. FINDIN GS: The right thyroi d gland measur es 4 . The left thyroi d gland measur es approx imatel y 3 cm . The isthmu s measur es 5 mm. . IMPRES KIERRA: 1. Atroph ic left thyroi d lobe otherw ise normal examin ation Electr onical ly Signed by: Thaddeus Jacobs at 2022 14:17: 44 PM Page 1 [facility] (Imaging) [address] [place], [address], 05/10/2023 15:46:25 02/04/20 24 02/04/2024 DEXA, axial skele ton [facility] [address] [place] [phone] Patien t Name: ELLY WILLIAM ion #: [id number] Sex: F : 1940 9 Dictat ed By: Sharmaine Madden Attend ing Physic shireen: DENA BRITT Physic shireen: DENA BRITT Exam Date: 2023 14:39 PM Exam Name: XR DEXA-H IPS PELVIS SPINE Admitt ing Diagno sis(es ): INDICA TION: 83 years old, Female ; postme nopaus al state. Osteop orosis screen ing. DEXA SCAN: BONE DENSIT Y REPORT : LEFT HIP TOTAL : T Score: 0.1 RT HIP TOTAL : T Score: -0.1 TOTAL LEFT FOREAR M: T SCORE: -1.6 TOTAL BILAT HIP AVG: T Score: 0.0 10 YEAR FRACTU RE RISK* Not provid ed. IMPRES KIERRA: 1. Normal bone minera l densit y of the bilate ral hips. 2. Osteop enia of the left forear m. ------ ------ ------ ------ ------ ------ ------ ------ ----- *FRAX versio n 3.08. Fractu re probab ility calcul ated for an untrea ena patien t. Fractu re probab ility may be lower if the patien t has receiv ed treatm ent. T-scor e: compar conchita by giovanny mandel deviat ion (SD) to a young adult popula tion, matche d for sex and ethnic ity (used for postme nopaus al women and men >[address] [facility] [address] [address] Patien t Name: ELLY WILLIAM Tony Access ion #: [id number] Sex: F : 1940 9 Dictat ed By: Sharmaine Madden Attend ing Physic shireen: JAIME COLLINS [facility] Physic shireen: DENA BRITT Exam Date: 2023 14:39 PM Exam Name: XR DEXA-H IPS PELVIS SPINE Admitt ing Diagno sis(es ): years) and classi fied by WHO criter ia. -1.0: normal <-1.0 to >-2.5: osteop enia -2.5: osteop orosis -2.5 plus fragil ity fractu re: severe osteop orosis Z-scor e: compar ed by SD to an age, sex, and ethnic ity popula tion (used for premen opausa l women, men <50 years, and childr en instea d of T-scor e WHO criter ia 4) <-2.0: below expect ed range/ low bone densit y for age, and a cause should be sought Electr onical ly Signed by: Sharmaine Madden at 2023 15:32: 11 PM Page 2 [email or web address] [facility] (Imaging) [address] [place], [address], 02/06/2024 14:51:47 03/24/20 24 XR, chest No observ ation record ed. [email or web address] Not Available 2023 17:19:53 03/24/20 24 XR, ankle No observ ation record ed. [email or web address] Not Available 2023 17:19:49 04/22/20 24 10/06/2016 home sleep study No observ ation record ed. [email or web address] Not Available 2023 14:03:17 Result Notes Documentation Provider Name and Address Organization Details Recorded Time Dexa, Axial Skeleton : [facility] [address] [place] [address] Patient Name: NAYELI WILLIAM Sex: F : 1940 Dictated By: Sharmaine Madden Attending Physician: HUMPHREY BIRTT Ordering Physician: HUMPHREY BRITT Exam Date: 02/04/2024 14:39 PM Exam Name: XR DEXA-HIPS PELVIS SPINE Admitting Diagnosis(es): INDICATION: 83 years old, Female; postmenopausal state. Osteoporosis screening. DEXA SCAN: BONE DENSITY REPORT: LEFT HIP TOTAL : T Score: 0.1 RT HIP TOTAL : T Score: -0.1 TOTAL LEFT FOREARM: T SCORE: -1.6 TOTAL BILAT HIP AVG: T Score: 0.0 10 YEAR FRACTURE RISK* Not provided. IMPRESSION: 1. Normal bone mineral density of the bilateral hips. 2. Osteopenia of the left forearm. --- *FRAX version 3.08. Fracture probability calculated for an untreated patient. Fracture probability may be lower if the patient has received treatment. T-score: comparison by standard deviation (SD) to a young adult population, matched for sex and ethnicity (used for postmenopausal women and men >50 Page 1 [facility] [address] [place] [address] Patient Name: NAYELI WILLIAM Sex: F : 1940 Dictated By: Sharmaine Madden Attending Physician: JAIME YIN Ordering Physician: HUMPHREY BRITT Exam Date: 02/04/2024 14:39 PM Exam Name: XR DEXA-HIPS PELVIS SPINE Admitting Diagnosis(es): years) and classified by WHO criteria. -1.0: normal <-1.0 to >-2.5: osteopenia -2.5: osteoporosis -2.5 plus fragility fracture: severe osteoporosis Z-score: compared by SD to an age, sex, and ethnicity population (used for premenopausal women, men <50 years, and children instead of T-score WHO criteria 4) <-2.0: below expected range/low bone density for age, and a cause should be sought Page 2 RADHA [place] [facility] 02/06/2024 14:51:47 Problems Name Problem SNOMED Code Status Onset Date Resolution Date Notes Provider Name and Address Organization Details Recorded Time Decreased hearing 076498660 Active Not Available [facility] 4 07:50:46 Benign essential hypertens ion 4241666 Active Not Available [facility] 4 07:50:46 Backache 741086714 Completed Not Available [facility] 3 05:19:27 Body mass index 30+ - obesity 336757196 Active Not Available [facility] 4 07:50:46 Herpes zoster 2886381 Active Not Available [facility] 4 07:50:47 Atrial fibrillat ion 62166094 Active Not Available [facility] 4 07:50:47 Dysuria 87632108 Completed Not Available [facility] 3 05:19:28 Closed fracture of phalanx of foot 17892227 Active Not Available [facility] 4 07:50:47 Diabetes mellitus 78055731 Active 2018 Not Available [facility] 4 07:50:47 Left foot drop 79529023303 9105 Active 2018 Not Available [facility] 4 07:50:46 Hypothyro idism 65821396 Active 2021 Not Available [facility] 4 07:50:46 Mixed hyperlipi demia 231132108 Active 2021 Not Available [facility] 4 07:50:46 Urinary incontine nce 611744754 Active 2021 Not Available [facility] 4 07:50:46 Sleep apnea 56765533 Active 2024 Bindu White NP [address], [address], [place], [address] , [employer] 5 16:31:19 Dyspnea on exertion 09876200 Active 2024 Bindu White NP [address], [address], [place], [address] , [employer] 5 16:42:34 Congestiv e heart failure 45223597 Active 2024 Bindu White NP [address], [address], [place], [address] , [employer] 5 09:20:15 Notes:[facility] home sleep study 10/06/16 AHI = 30 Medical History: Cataracts Glaucoma Bilateral hearing loss R>L ICA stenosis Erythrocytosis Obesity with severe OSAHS, AHI = 30, 10/06/16 Left thyroid atrophy Hypothyroidism Mixed hyperlipidemia T2DM with microalbuminuria EF 55% Mod Atrial fibrillation Splenic granulomas 3.8 cm left adrenal myelolipoma Bilateral renal cysts Urge urinary incontinence Shingles Osteopenia Mild thoracic DDD Left foot drop Procedure Note: LAD stent 2010 Left internal carotid artery stent 2019 PCI to OM2 2023 Problem Notes Documentation Provider Name and Address Organization Details Recorded Time Endocrinology Consult Note : [facility] [address], [facility] [id number], Lucille A (id #[id number], : 1940) Documents sent via fax will include the following message: This fax may contain sensitive and confidential personal health information that is being sent for the sole use of the intended recipient. Unintended recipients are directed to securely destroy any materials received. You are hereby notified that the unauthorized disclosure or other unlawful use of this fax or any personal health information is prohibited. To the extent patient information contained in this fax is subject to 42 CFR Part 2, this regulation prohibits unauthorized disclosure of these records. If you received this fax in error, please visit [email or web address] to notify the sender and confirm that the information will be destroyed. If you do not have internet access, please call to notify the sender and confirm that the information will be destroyed. Thank you for your attention and cooperation. [ID:[id number]][facility] R[facility] [address] [place] [id number] , Date: 12/08/2022RE: Nayeliblas William, : 1940, PT ID #[id number] Britt MD, I would like to thank you for referring Nayeil William to our practice for consultation and evaluation of Followup: Type 2 diabetes mellitus without complication , on 12/08/2022. I have enclosed a copy of the office evaluation for your records. Once again, thank you for allowing me to participate in the care of this patient. Sincerely, Electronically Signed by: ANISHA MADRIGAL MD Encounter Reason/Date Followup: Type 2 diabetes mellitus without complication 12/08/2022 - 01:15PM - [facility] Mois[facility] [place] Problems:Reviewed Problems Herpes zoster Candidiasis of vagina - Onset: 02/08/2022 Hypothyroidism - Onset: 08/05/2021 Diabetes mellitus - Onset: 08/21/2018 Type 2 diabetes mellitus without complication Type II diabetes mellitus uncontrolled Hypercholesterolemia - Onset: 08/21/2018 Mixed hyperlipidemia - Onset: 12/15/2021 Dyslipidemia Body mass index 30+ - obesity Decreased hearing Benign essential hypertension Atrial fibrillation Internal carotid artery stenosis - Onset: 11/03/2019, Left - stented per foot setter note Upper respiratory infection - Onset: 03/03/2022 Influenza - Onset: 03/03/2022 Acute urinary tract infection - Onset: 04/03/2022 Urinary tract infectious disease Cellulitis of toe - Onset: 10/31/2018 Cellulitis of toe - Onset: 08/26/2018, Left Chest pain - Onset: 01/10/2022 Diarrhea Urinary incontinence - Onset: 02/14/2022 Standard chest X-ray abnormal - Onset: 01/11/2022 Closed fracture of phalanx of foot Sprain of ankle Injury of toe - Onset: 08/26/2018, Left Complaining of - low back pain On examination - obese Liver enzymes outside reference range Left foot drop - Onset: 08/26/2018 back/neck problems, blood clots, cardiac arrhythmia, carotid blockage, parathyroid disease, stroke, use of blood thinners, balance problems, numbness or tingling, vision problems, wears glasses, cataracts/glaucoma Some problems listed in Documents: #[id number], #[id number] could not be added to this patient's chart. Please review these documents and add these problems to the patient's chart manually as needed. Allergies: Reviewed Allergies ACETAMINOPHEN: Rash AMOXICILLIN: Rash CODEINE: Rash MACROBID Some allergies listed in Documents: #[id number], #[id number] could not be added to this patient's chart. Please review these documents and add these allergies to the patient's chart manually as needed. Medications: Reviewed Medications NameDate Source aspirin 325 mg tabletTake 1 tablet every day by oral route., start started MIGRATION.[id number] atorvastatin 10 mg tabletTAKE 1/2 TABLET BY MOUTH EVERY SUNDAY, SUNDAY AND FWYNWP23/08/23 filled surescripts Bydureon BCise 2 mg/0.85 mL subcutaneous auto-injectorINJECT 2MG SUBCUTANEOUSLY EVERY WEEK12/08/22 prescribed Anisha Madrigal MD ciprofloxacin 250 mg tabletTAKE 1 TABLET BY MOUTH TWICE DAILY FOR 7 DAYS12/06/22 filled surescripts DULoxetine 60 mg capsule,delayed releaseTAKE 1 CAPSULE BY MOUTH EVERY DAY11/20/22 filled surescripts Eliquis 5 mg tabletTAKE 1 TABLET BY MOUTH TWICE DAILY10/16/22 filled surescripts Fish OiL08/14/22 entered Maryam Melendez RN fluconazole 150 mg tabletTake 1 tablet by oral route once weekly x 4 weeks12/08/22 prescribed Anisha Madrigal MD fluconazole 200 mg tabletTake 1 tablet(s) every week by oral route in the morning for 30 days.12/08/22 prescribed Anisha Madrigal MD Gemtesa 75 mg tabletTAKE 1 TABLET BY MOUTH EVERY DAY12/07/22 filled surescripts glipiZIDE 5 mg tabletTake 2 tablet(s) twice a day by oral route before meals for 90 days.12/08/22 prescribed Anisha Madrigal MD levothyroxine 50 mcg tabletTAKE 1 TABLET BY MOUTH EVERY DAY12/08/22 prescribed Anisha Madrigal MD lisinopriL 20 mg tabletTAKE 1 TABLET BY MOUTH TWICE DAILY11/15/22 filled surescripts Lumigan 0.01 % eye dropsINT 1 GTT IN OU QPM UTD10/16/22 filled surescripts metFORMIN ER 500 mg tablet,extended release 24 hrTAKE 2 TABLETS BY MOUTH EVERY DAY WITH A MEAL12/08/22 prescribed Anisha Madrigal MD multivitaminstart started MIGRATION.[id number] nitrofurantoin monohydrate/macrocrystals 100 mg capsuleTAKE 1 CAPSULE BY MOUTH TWICE DAILY FOR 5 DAYS [id number]/15/23 filled surescripts OneTouch Ultra Blue Test StripTEST BLOOD SUGAR TWICE DAILY KRMABARJ49/12/21 filled MIGRATION.[id number] OneTouch Ultra Test stripsTEST BLOOD SUGAR ONCE DAILY10/16/22 filled surescripts Praluent Pen 150 mg/mL subcutaneous pen injectorINJECT 1 PEN UNDER THE SKIN ONCE EVERY 2 WEEKS11/06/22 filled surescripts sotaloL AF 80 mg tabletTAKE 1 TABLET BY MOUTH TWICE DAILY11/14/22 filled surescripts Tresiba FlexTouch U-200 insulin 200 unit/mL (3 mL) subcutaneous penINJECT 70 UNITS UNDER THE SKIN AT BEDTIME [id number]/04/23 prescribed Anisha Madrigal MD ZyrTEC 10 mg tabletTake 1 tablet every day by oral route., start started MIGRATION.[id number] Family History:Family History not reviewed (last reviewed 08/14/2022) Mother - Heart failure ( age: 85) Father - Myocardial infarction Daughter - Malignant tumor of breast - mets to lung Social History:Social History not reviewed (last reviewed 08/14/2022) Substance UseDo you or have you ever smoked tobacco?: Never smokerHow much tobacco do you smoke?: NoneHow many years have you smoked tobacco?: 0Do you or have you ever used any other forms of tobacco or nicotine?: NoDo you or have you ever used e-cigarettes or vape?: Never used electronic cigarettesDo you or have you ever used smokeless tobacco?: Never used smokeless tobaccoHow much tobacco do you chew?: noneWhat was the date of your most recent tobacco screening?: 08/14/2022Has tobacco cessation counseling been provided?: No (Notes: not needed-never smoked)What is your level of alcohol consumption?: NoneHave you ever been counseled for unhealthy alcohol use?: NoDo you use any illicit or recreational drugs?: NoWhich illicit or recreational drugs have you used?: noneWhat is your level of caffeine consumption?: None (Notes: decaf)Home and EnvironmentWhere do you live?: Single-level house (Notes: with basement)Do you have smoke and carbon monoxide detectors in your home?: YesAre you passively exposed to smoke?: NoAre there any guns present in your home?: NoDo you use sunscreen routinely?: NoEducation and OccupationWhat is the highest grade or level of school you have completed or the highest degree you have received?: Master's degree (e.g., MA, MS, Leslie, MEd, [employer], AMADEO)What is your occupation?: retiredActivities of Daily LivingAre you able to care for yourself?: YesAre you blind or do you have difficulty seeing?: NoAre you deaf or do you have serious difficulty hearing? : NoDo you have difficulty concentrating, remembering or making decisions?: NoDo you have difficulty walking or climbing stairs?: Yes (Notes: uses walker)Do you have difficulty dressing or bathing?: NoDo you have difficulty doing errands alone?: NoAre you able to walk?: Yes: walks with assistive device(s) (Notes: uses walker)Do you have transportation difficulties?: NoLifestyleDo you wear a helmet when biking?: (Notes: does not bike)Do you use your seat belt or car seat routinely?: YesPublic Health and TravelHave you recently traveled abroad?: NoIn the 14 days before symptom onset, have you had close contact with a laboratory-confirmed COVID-19 while that case was ill?: NoIn the 14 days before symptom onset, have you had close contact with a person who is under investigation for COVID-19 while that person was ill?: NoDiet and ExerciseWhat type of diet are you following?: RegularDo you have any dietary restrictions?: NoWhat is your exercise level?: NoneHow many days of moderate to strenuous exercise, like a brisk walk, did you do in the last 7 days?: 0Marriage and SexualityWhat is your relationship status?: WidowedAdvance DirectiveDo you have a medical power of attorney law clerk?: NoGender Identity and LGBTQ IdentityGender identity: Identifies as FemaleAssigned sex at : FemalePronouns: she/herSexual orientation: Straight or heterosexualSurgical HistorySurgical History not reviewed (last reviewed 08/14/2022) Orthopedic Surgery Cardiac Stent Placement - 08/05/2018 Parathyroidectomy - 03/29/2018 Laminectomy - 07/17/2012 laminectomy 07/17/12 Rogelio Lisa, parathyroidectomy Dr Moreau Additional HistoryNone recordedHistory of Present Illness:81 yo female comes in for follow up in management of overall controlled type 2 DM (A1C of 7.9%), dyslipidemia. last seen in December at that time we had patient continue on tresiba 40 units at bedtime and titrate by 4 units every 4 days until fasting glucose 90-130 mg/dL.We had patient continue on bydureon 2 mg SQ once weekly along with glimepiride scale and metformin twice daily for insulin sensitization. we continued statin therapy She is no longer taking the farxiga as it caused yeast infection and itchiness. Her sugars are runningunder 150 mg/dL typicallydenies any hypoglycemiashe does run over 200 mg/dL on occasion She is no longer taking the glimepiride- they want her to go on glipizide/insurance. She is now taking tresiba 56 units at bedtime. labs from 06/29:a1c 7.9%microalbumin 220 ug/mgTSH of 2.590 uIU/mlFT4 of 1.2 ng/dLLFT normalCr normalglucose 165 mg/dL111/269/52/5Review of Systems:ROS as noted in the HPIPhysical ExamConstitutional:General Appearance: healthy-appearing, well-nourished, well-developed, not anxious/nervous, and no sweating;female ambulating with walker. Level of Distress: no acute distress. Eyes:Lids and Conjunctivae: no discharge, pallor, lid lag, or periorbital edema and non-injected. Neck:Neck: supple, trachea midline, no masses, and full range of motion. Thyroid: no enlargement or nodules and non-tender. Neck vessels: no carotid bruits or thyroid bruits. Lymph Nodes: no anterior cervical LAD, posterior cervical LAD, submandibular LAD, submental LAD, preauricular LAD, or supraclavicular LAD. Cardiovascular:Apical Impulse: not displaced. Heart Auscultation: normal S1 and S2; no murmurs, rubs, or gallops; and regular rate and rhythm. Lungs:Auscultation: no wheezing, rales/crackles, or rhonchi and breath sounds normal, good air movement, and clear to auscultation. Psychiatric:Mental Status: normal mood and affect, no diffuse anxiety or paranoid ideations, and active and alert.Procedure DocumentationNone recordedAssessment/Plan1. Type 2 diabetes mellitus without complication-a1c of 7.9% overall in range- continue on tresiba 56 units at bedtime and patient aware to increase or decrease every 4 days to maintain fasting glucose of 90-130 mg/dL Continue on bydureon 2 mg SQ once weekly along with glipizide scale as insurance will not cover glimepiride along with metformin twice daily for insulin sensitization.E11.9: Type 2 diabetes mellitus without complications Tresiba FlexTouch U-200 insulin 200 unit/mL (3 mL) subcutaneous pen - INJECT 70 UNITS UNDER THE SKIN AT BEDTIME DIRECTED Qty: (10) 3 mL syringe Refills: 2 Pharmacy: [facility] #[id number] glipizide 5 mg tablet - Take 2 tablet(s) twice a day by oral route before meals for 90 days. Qty: (360) tablet Refills: 1 Pharmacy: [facility] #[id number] LITE TOUCH INSULIN PEN NEEDLES 31 GAUGE X 5/16 - inject tresiba daily x 90 days Qty: 90 Units Refills: 1 Supplier: [facility] #[id number] Bytori BCise 2 mg/0.85 mL subcutaneous auto-injector - INJECT 2MG SUBCUTANEOUSLY EVERY WEEK Qty: (12) 0.85 mL syringe Refills: 1 Pharmacy: [facility] #[id number] metformin ER 500 mg tablet,extended release 24 hr - TAKE 2 TABLETS BY MOUTH EVERY DAY WITH A MEAL Qty: (180) tablet Refills: 1 Pharmacy: [facility] #[id number] 2. Candidiasis of vagina-She is no longer on farxiga- advised to stop due to yeast infection- treat with fluconazole- patient does have urologist and encouraged to follow up if she is experiencing further issues with UTIS when off farxiga- she voiced understanding.B37.31: Acute candidiasis of vulva and vagina fluconazole 150 mg tablet - Take 1 tablet by oral route once weekly x 4 weeks Qty: (4) tablet Refills: 1 Pharmacy: [facility] #[id number] 3. Hypothyroidism-Continue on LT4 50 mcg daily. Spent up to 25 minutes preparing to see the patient (eg, review of tests), obtaining and/or reviewing separately obtained history, performing a medically appropriate examination and evaluation, counseling and educating the patient, ordering medications, tests, along with documenting clinical information in the electronic health record, independently interpreting results and communicating results to the patient. Patient can be followed by PCP - she/he is aware of my resignation and last day of February 16. If needed his/her PCP can refer patient to another flume worker in the area. All questions /concerns answered and refills necessary at visit today.E03.9: Hypothyroidism, unspecified levothyroxine 50 mcg tablet - TAKE 1 TABLET BY MOUTH EVERY DAY Qty: (1) 90 tablet blister pack Refills: 1 Pharmacy: [facility] #[id number] Return to Office Humphrey Britt MD for Any 15 at [facility] Internal Med [place] 15 on 12/18/2022 at 01:30 PM Jared Jacobo MD for Follow Up 10 at [facility] U[place] on 02/13/2023 at 02:00 PM CHRISTIANO Masters, [place] - [facility] 12/19/2022 09:44:48 Procedures Surgical History Date Name Laterality Status Provider Name and Address Organization Details Recorded Time 021 Most Recent Bone Density completed Not Available [facility] 07/05/2022 05:14:01 019 Cardiac Stent Placement completed Not Available [facility] 07/05/2022 05:14:05 018 parathyroidectomy completed Not Available [facility] 07/05/2022 05:14:05 016 Date of Last Colonoscopy completed Not Available [facility] 07/05/2022 05:14:01 013 laminectomy completed Not Available [facility] 07/05/2022 05:14:05 Orthopedic Surgery completed Not Available [facility] 07/05/2022 05:14:05 Imaging Results None recorded. Procedure Notes None recorded. Medical Equipment None Reported. Allergies Allergen ID Allergen Name Allergen Category Reaction Reaction Severity Criticality Documentation Date Start Date Code Code System Note Provider Name and Address Organization Details Recorded Time 00731 Macrobid medicatio n Not available Not available Not available 10/27/2022 56127 1 RxNorm Maryam tolentino RN [facility] Ripl [facility] 3 15:45:15 84316 Tylenol medicatio n rash Not available Not available 03/26/202459947 3 RxNorm Kait Quiroga [facility] Nujira [facility] 4 15:54:46 9685 codeine medicatio n rash Not available Not available 07/05/2022 2670 RxNorm Not Available [facility] 3 05:26:56 9686 amoxicill in medicatio n rash Not available Not available 07/05/2022 723 RxNorm Not Available [facility] 3 05:26:57 9687 acetamino phen medicatio n rash Not available Not available 07/05/2022 161 RxNorm Not Available [facility] 3 05:26:57 Medications Name Sig Start Date Stop Date Status Note LastModified by Organization Details LastModified Time metformin 500 mg tablet active Not Available Not Available Not Available hydrocodone 7.5 mg-ibuprofe n 200 mg tablet 03/22 completed Not Available Not Available Not Available prednisone 10 mg tablet 30mg x 2 days, 20mg x 2 days, 10,g x 2 days active Not Available Not Available No t Available doxycycline hyclate 100 mg capsule TAKE 1 CAPSULE BY MOUTH TWICE DAILY 03/26 completed Not Available Not Available Not Available clindamycin HCl 300 mg capsule Take 1 capsule every 6 hours by oral route as directed for 7 days. active Not Available Not Available No t Available atorvastati n 10 mg tablet TAKE 1/2 TABLET BY MOUTH EVERY SUNDAY, SUNDAY , SUNDAY active Not Available Not Available No t Available lisinopril 20 mg-hydrochl orothiazide 12.5 mg tablet TAKE 1 TABLET BY MOUTH TWICE DAILY active Not Available Not Available No t Available azithromyci n 250 mg tablet TK 2 TS PO ON DAY 1, THEN TK 1 T PO D FOR 4 DAYS 06/07 completed Not Available Not Available Not Available aspirin 325 mg tablet Take 1 tablet every day by oral route. 2013 active Not Available Not Available Not Avai lable metoprolol tartrate 100 mg tablet TAKE ONE TABLET BY MOUTH TWICE DAILY 03/22 completed Not Available Not Available Not Available fluconazole 150 mg tablet TAKE 1 TABLET BY MOUTH EVERY DAY 03/26 completed Not Available Not Available Not Available amiodarone 200 mg tablet Take 1 tablet every day by oral route for 90 days. 02/06 completed Not Available Not Available Not Available benzonatate 200 mg capsule Take 1 capsule 3 times a day by oral route before meals. active Not Available Not Available No t Available valacyclovi r 1 gram tablet Take 1 tablet every 8 hours by oral route for 7 days. 07/27 completed Not Available Not Available Not Available fluconazole 200 mg tablet TAKE 1 TABLET BY MOUTH EVERY DAY FOR 2 DAYS 03/25 completed Not Available Not Available Not Available lisinopril 20 mg tablet TAKE 1 TABLET BY MOUTH TWICE DAILY 03/25 completed Not Available Not Available Not Available Medrol (Jarocho) 4 mg tablets in a dose pack take decreasin g doses as directed active Not Available Not Available No t Available clindamycin HCl 150 mg capsule TAKE ONE CAPSULE BY MOUTH EVERY 8 HOURS UNTIL ALL TAKEN 08/14 completed Not Available Not Available Not Available Zyrtec 10 mg tablet Take 1 tablet every day by oral route. 03/25 completed Not Available Not Available Not Available metronidazo le 500 mg tablet 01/01 completed Not Available Not Available Not Available clopidogrel 75 mg tablet TAKE 1 TABLET BY MOUTH DAILY active Not Available Not Available No t Available ciprofloxac in 250 mg tablet TAKE 1 TABLET BY MOUTH TWICE DAILY FOR 7 DAYS 12/18 completed Not Available Not Available Not Available amlodipine 5 mg tablet TAKE ONE TABLET BY MOUTH EVERY DAY 03/22 completed Not Available Not Available Not Available ciprofloxac in 500 mg tablet TAKE 1 TABLET BY MOUTH TWICE DAILY FOR 7 DAYS 03/26 completed Not Available Not Available Not Available sulfamethox azole 800 mg-trimetho prim 160 mg tablet Take 1 tablet every 12 hours by oral route for 7 days. 12/11 completed Not Available Not Available Not Available tramadol 50 mg tablet 06/10 completed Not Available Not Available Not Available glimepiride 2 mg tablet TK 1 T PO BID WITH MEALS 12/11 completed Not Available Not Available Not Available Celebrex 200 mg capsule 01/01 completed Not Available Not Available Not Available amitriptyli ne 25 mg tablet TAKE 1 TABLET BY MOUTH EVERY DAY AT BEDTIME active Not Available Not Available No t Available magnesium oxide 400 mg (241.3 mg magnesium) tablet 11/08 completed Not Available Not Available Not Available calcium 500 mg (as calcium carbonate 1,250 mg) tablet TK 1 T PO TID. 08/14 completed Not Available Not Available Not Available DOK 100 mg capsule TK 1 C PO BID. 08/14 completed Not Available Not Available Not Available OneTouch Ultra Test strips USE DIRECTED DAILY 05/28 completed Not Available Not Available Not Available meclizine 25 mg tablet TAKE 1 TABLET BY MOUTH THREE TIMES DAILY NEEDED FOR VERTIGO active Not Available Not Available No t Available levothyroxi ne 50 mcg tablet TAKE 1 TABLET BY MOUTH EVERY DAY active Not Available Not Available No t Available oseltamivir 75 mg capsule TAKE 1 CAPSULE BY MOUTH TWICE DAILY FOR 5 DAYS 08/14 completed Not Available Not Available Not Available metformin 1,000 mg tablet TAKE ONE TABLET BY MOUTH EVERY MORNING AND ONE-HALF TABLET BY MOUTH EVERY EVENING active Not Available Not Available No t Available tobramycin 0.3 % eye drops 07/27 completed Not Available Not Available Not Available glimepiride 4 mg tablet TAKE 1 TABLET BY MOUTH TWICE DAILY BEFORE MEALS active Not Available Not Available No t Available ibuprofen 400 mg tablet 08/14 completed Not Available Not Available Not Available metoprolol tartrate 50 mg tablet bid active Not Available Not Available No t Available diclofenac 50 mg-misopros suze 200 mcg tablet,imme d.and delayed release Take 1 tablet by mouth twice a day 07/27 completed Not Available Not Available Not Available lisinopril 20 mg-hydrochl orothiazide 25 mg tablet 01/01 completed Not Available Not Available Not Available aspirin 81 mg chewable tablet CHEW AND SWALLOW 1 TABLET BY MOUTH ONCE DAILY. 03/26 completed Not Available Not Available Not Available Bentyl 10 mg capsule Take 1 capsule every day by oral route. 10/11 completed Not Available Not Available Not Available mupirocin 2 % topical ointment APPLY A SMALL AMOUNT TO THE AFFECTED AREA of the great toe BY TOPICAL ROUTE 3 TIMES PER DAY active Not Available Not Available No t Available diclofenac sodium 50 mg tablet,chandler yed release 07/27 completed Not Available Not Available Not Available furosemide 20 mg tablet TAKE ONE TABLET BY MOUTH TWICE DAILY 05/15 completed Not Available Not Available Not Available gabapentin 100 mg capsule 3 tid 10/30 completed Not Available Not Available Not Available cefuroxime axetil 500 mg tablet Take 1 tablet every 12 hours by oral route. active Not Available Not Available No t Available cefdinir 300 mg capsule TAKE 1 CAPSULE BY MOUTH TWICE DAILY 03/26 completed Not Available Not Available Not Available fluticasone propionate 50 mcg/actuati on nasal spray,suspe nsion Take 1 spray each nostril twice a day 05/24 completed Not Available Not Available Not Available metformin ER 500 mg tablet,exte nded release 24 hr TAKE 2 TABLETS BY MOUTH EVERY DAY WITH A MEAL active Not Available Not Available No t Available calcitriol 0.25 mcg capsule 05/15 completed Not Available Not Available Not Available glipizide 5 mg tablet TAKE 2 TABLETS BY MOUTH TWICE DAILY BEFORE MEALS active Not Available Not Available No t Available oxycodone 5 mg tablet 05/15 completed Not Available Not Available Not Available ezetimibe 10 mg tablet active Not Available Not Available Not Available Vitamin D3 25 mcg (1,000 unit) capsule Take by oral route. 08/14 completed Not Available Not Available Not Available Vigamox 0.5 % eye drops 01/01 completed Not Available Not Available Not Available rosuvastati n 10 mg tablet Take 1/2 tablet by mouth every sunday, sunday and sunday. 03/25 completed Not Available Not Available Not Available rosuvastati n 20 mg tablet 09/06 completed Not Available Not Available Not Available Sotalol AF 80 mg tablet TAKE 1 TABLET BY MOUTH TWICE DAILY active Not Available Not Available No t Available nitrofurant oin monohydrate /macrocryst als 100 mg capsule TAKE 1 CAPSULE BY MOUTH EVERY 12 HOURS FOR 5 DAYS 04/25 completed Not Available Not Available Not Available duloxetine 30 mg capsule,del ayed release 07/15 completed Not Available Not Available Not Available duloxetine 60 mg capsule,del ayed release TAKE 1 CAPSULE BY MOUTH EVERY DAY active Not Available Not Available No t Available OneTouch UltraSoft Lancets 07/26 completed Not Available Not Available Not Available solifenacin 5 mg tablet TK 1 T PO QD 05/05 completed Not Available Not Available Not Available omega-3 acid ethyl esters 1 gram capsule Take 4 capsules by mouth every day as directed 07/26 completed Not Available Not Available Not Available Nevanac 0.1 % eye drops,suspe nsion 01/01 completed Not Available Not Available Not Available Fish Oil 03/25 completed Not Available Not Available Not Available Bactrim 12/11 completed Not Available Not Available Not Available multivitami n 04/25 completed Not Available Not Available Not Available PreserVisio n AREDS 12/08 completed Not Available Not Available Not Available BD Ultra-Fine Short Pen Needle 31 gauge x 5/16 USE TO INJECT TRESIBA DAILY DIRECTED 03/25 completed Not Available Not Available Not Available Zostavax (PF) 19,400 unit/0.65 mL subcutaneou s suspension active Not Available Not Available N ot Available niacin (inositol niacinate) 500 mg capsule Take by oral route. 07/29 completed Not Available Not Available Not Available Durezol 0.05 % eye drops 01/01 completed Not Available Not Available Not Available GaviLyte-N 420 gram oral solution 07/27 completed Not Available Not Available Not Available OneTouch Delica Lancets 33 gauge 07/26 completed Not Available Not Available Not Available Xifaxan 550 mg tablet 11/28 completed Not Available Not Available Not Available Prolia 60 mg/mL subcutaneou s syringe inject 1 mL subcutane ously once every 6 months 09/20 completed Not Available Not Available Not Available Lumigan 0.01 % eye drops INSTILL 1 DROP IN BOTH EYES 1 TIME AT NIGHT active Not Available Not Available No t Available Lotemax 0.5 % eye gel drops 07/27 completed Not Available Not Available Not Available Eliquis 5 mg tablet TAKE 1 TABLET BY MOUTH TWICE DAILY 03/25 completed Not Available Not Available Not Available Eliquis 2.5 mg tablet TK 1 T PO BID 12/11 completed Not Available Not Available Not Available Prolensa 0.07 % eye drops 03/22 completed Not Available Not Available Not Available Fluvirin 3989-5522 45 mcg (15 mcg x 3)/0.5 mL intramuscul ar suspension active Not Available Not Available N ot Available Farxiga 10 mg tablet TAKE 1 TABLET BY MOUTH ONCE A DAY active Not Available Not Available No t Available Bydureon 2 mg/0.65 mL subcutaneou s pen injector INJECT 2MG SUBCUTANE OUSLY EVERY WEEK DIRECTED active Not Available Not Available No t Available Fluzone High-Dose (PF) 180 mcg/0.5 mL intramuscul ar syringe active Not Available Not Available N ot Available Praluent Pen 150 mg/mL subcutaneou s pen injector INJECT 1 PEN UNDER THE SKIN ONCE WEEKLY EVERY 2 WEEKS active Not Available Not Available No t Available Tresiba FlexTouch U-200 insulin 200 unit/mL (3 mL) subcutaneou s pen ADMINISTE R 70 UNITS UNDER THE SKIN AT BEDTIME DIRECTED active Not Available Not Available No t Available TechLITE Pen Needle 32 gauge x 1/4 USE TO INJECT INSULIN EVERY NIGHT AT BEDTIME DIRECTED 12/08 completed Not Available Not Available Not Available Fluzone High-Dose 7821-9830 (PF) 180 mcg/0.5 mL intramuscul ar syringe 07/27 completed Not Available Not Available Not Available Fluzone High-Dose (PF) 180 mcg/0.5 mL intramuscul ar syringe 03/22 completed Not Available Not Available Not Available Bydureon BCise 2 mg/0.85 mL subcutaneou s auto-inject or INJECT 2 MG UNDER THE SKIN EVERY WEEK 03/25 completed Not Available Not Available Not Available OneTouch Ultra Blue Test Strip TEST BLOOD SUGAR TWICE DAILY DIRECTED 03/25 completed Not Available Not Available Not Available Fluzone High-Dose (PF) 180 mcg/0.5 mL intramuscul ar syringe 05/15 completed Not Available Not Available Not Available Fluzone High-Dose Quad (PF) 240 mcg/0.7 mL IM syringe active Not Available Not Available N ot Available Gemtesa 75 mg tablet TAKE 1 TABLET BY MOUTH EVERY DAY active Not Available Not Available No t Available Paxlovid 300 mg (150 mg x 2)-100 mg tablets in a dose pack TK 2 NIRMATREL VIR TS AND 1 RITONAVIR T TOGETHER PO BID FOR 5 DAYS 03/26 completed Not Available Not Available Not Available Ozempic 0.25 mg or 0.5 mg (2 mg/3 mL) subcutaneou s pen injector INJECT 0.5 MG UNDER THE SKIN WEEKLY 03/25 completed Not Available Not Available Not Available Vitals Date Recorded Body height Body mass index (BMI) Body weight Body temperature Heart rate Oxygen saturation Oxygen saturation in Arterial blood by Pulse oximetry Oxygen saturation Oxygen saturation in Arterial blood by Pulse oximetry Inhaled oxygen flow rate Systolic And Diastolic Provider Name and Address Organization Details Last Updated DateTime 5 157.48 cm 33.5 kg/m2 92676.4 g 98 [degF] 59 /min 87 % 87 % 93 % 93 % 1 L/min 126/82 mm[Hg] Janelle Perez MA [employer] 5 16:19:16 Date Recorded Body height Body mass index (BMI) Body weight Heart rate Respiratory rate Systolic And Diastolic Provider Name and Address Organization Details Last Updated DateTime 3 182.88 cm 24.8 kg/m2 90585.9 7 g 92 /min 66 /min 149/70 mm[Hg] Laly Joel [employer] 3 14:21:54 Date Recorded Body height Body mass index (BMI) Body weight Body temperature Heart rate Systolic And Diastolic Provider Name and Address Organization Details Last Updated DateTime 3 182.88 cm 25 kg/m2 57228 g 97.2 [degF] 66 /min 124/86 mm[Hg] CHRISTIANO Masters [facility] Nuj[place] [facility] 3 14:30:48 Date Recorded Body height Body mass index (BMI) Body weight Provider Name and Address Organization Details Last Updated DateTime 03/26/2024 157.48 cm 33.8 kg/m2 49999.59 g Kait Quiroga [facility] [place] [facility] 03/26/2024 15:54:10 Date Recorded Body height Body mass index (BMI) Body weight Body temperature Heart rate Oxygen saturation Oxygen saturation in Arterial blood by Pulse oximetry Systolic And Diastolic Provider Name and Address Organization Details Last Updated DateTime 3 182.88 cm 24.5 kg/m2 09366.2 2 g 96.4 [degF] 70 /min 90 % 90 % 138/68 mm[Hg] Minnie burgess CMA [facility] [place] [facility] 3 16:04:12 Social History Question Answer Notes LastModified by Organization Details LastModified Time Tobacco Smoking Status Never Smoker Mariela cunningham, [facility] [place] [facility] 12/08/2022 13:56:15 Do You Have An Advance Directive? No Information Provided [id number] Information not available 07/05/2022 Are You Blind Or Do You Have Difficulty Seeing? No Information not available 12/08/2022 What Is Your Level Of Caffeine Consumption? None Decaf [id number] Information not available 07/05/2022 How Much Tobacco Do You Chew? None [id number] Information not available 07/05/2022 In The 14 Days Before Symptom Onset, Have You Had Close Contact With A Laboratory-conf irmed COVID-19 While That Case Was Ill? No Information not available 12/08/2022 In The 14 Days Before Symptom Onset, Have You Had Close Contact With A Person Who Is Under Investigation For COVID-19 While That Person Was Ill? No Information not available 12/08/2022 Are You Deaf Or Do You Have Serious Difficulty Hearing? No Information not available 12/08/2022 What Type Of Diet Are You Following? REGULAR [id number] Information not available 07/05/2022 Which Illicit Or Recreational Drugs Have You Used? None Information not available 12/08/2022 What Is The Highest Grade Or Level Of School You Have Completed Or The Highest Degree You Have Received? [id number] Information not available 12/08/2022 Do You Have An Electrostatic Air Filter? No Information not available 07/23/2024 How Many Days Of Moderate To Strenuous Exercise, Like A Brisk Walk, Did You Do In The Last 7 Days? 0 Information not available 12/08/2022 Have There Been Any Changes To Your Family Or Social Situation? No Information not available 12/08/2022 What Is The Fluoride Status Of Your Home? Unknown Information not available 12/08/2022 Are There Any Guns Present In Your Home? No Information not available 12/08/2022 Do You Have A Humidifier? No Information not available 07/23/2024 Do You Use Insect Repellent Routinely? No Information not available 12/08/2022 Where Do You Live? SingleLevelHouse With Basement Information not available 12/08/2022 Do You Have A Medical Power Of Memorial Designer? No Information not available 12/08/2022 Do You Have Moisture Problems In Your Home? No Information not available 07/23/2024 What Was The Date Of Your Most Recent Tobacco Screening? 07/23/2024 Information not available 07/23/2024 Have You Ever Been Counseled For Unhealthy Alcohol Use? No Information not available 12/08/2022 Do You Have Any Pets? Yes Information not available 12/08/2022 What Is Your Relationship Status? [id number] Information not available 07/05/2022 Do You Use Your Seat Belt Or Car Seat Routinely? Yes Information not available 12/08/2022 Do You Have Smoke And Carbon Monoxide Detectors In Your Home? Yes Information not available 12/08/2022 Are You Passively Exposed To Smoke? No Information not available 12/08/2022 Are There Any Smokers In Your House? No Information not available 12/08/2022 How Much Tobacco Do You Smoke? No [id number] Information not available 07/05/2022 What Types Of Sporting Activities Do You Participate In? None Information not available 12/08/2022 Do You Use Sunscreen Routinely? No Information not available 12/08/2022 Has Tobacco Cessation Counseling Been Provided? No Not Needed-never Smoked Information not available 12/08/2022 How Many Years Have You Smoked Tobacco? 0 Information not available 12/08/2022 Have You Recently Traveled Abroad? No Information not available 12/08/2022 Do You Have Difficulty Walking Or Climbing Stairs? Yes Uses Walker Information not available 12/08/2022 Do You Have Any Dietary Restrictions? No Information not available 12/08/2022 Sex: Female Functional Status Question Answer Note LastModified by [employer] ion Details LastModified Time Do you or have you ever used smokeless tobacco? Never used smokeless tobacco [id number] Information not available 07/05/2022 Have you been exposed to chemicals or toxins? not that aware of Information not available 07/23/2024 Do you have transportation difficulties? No Information not available 12/08/2022 Are you able to care for yourself independently? Yes Information not available 12/08/2022 Do you have difficulty dressing, bathing, grooming, or toileting? No Information not available 12/08/2022 Do you or have you ever used e-cigarettes or vape? Never used electronic cigarettes Information not available 12/08/2022 What is your exercise level? None [id number] Information not available 07/05/2022 Do you use any illicit or recreational drugs? No Information not available 12/08/2022 Do you or have you ever used any other forms of tobacco or nicotine? No Information not available 12/08/2022 What is your level of alcohol consumption? None [id number] Information not available 07/05/2022 Are you able to walk? YESASSIST uses walker Information not available 12/08/2022 Do you have difficulty doing errands alone? No Information not available 12/08/2022 What is your occupation? retired Information not available 12/08/2022 Mental Status Question Answer Note LastModified by Organizat ion Details LastModified Time Do you feel stressed (tense, restless, nervous, or anxious, or unable to sleep at night)? [id number] Information not available 12/08/2022 Do you have difficulty concentrating, remembering or making decisions? No Information no t available 12/08/2022 Family History Relationship Description Onset Age of this Age Resolved Age Notes LastModified by Organization Details LastModified Time Mother Heart failure 85 [email or web address] Not available 2022 13:56:10 Father Myocardial infarction [id number] Not available 07/05/2022 05:14:06 Daughter Malignant tumor of breast mets to lung [email or web address] Not available 12/08/2022 13:56:10 Medical History Condition Response NERVE DISEASE N CYSTITIS N BLINDNESS N RHEUMATIC FEVER N KIDNEY STONES N BLADDER PROBLEMS N MRSA N OTHER # 1 Y POLIO N LUNG DISEASE/DISORDER N HISTORY OF DRUG ABUSE N COPD N RADIATION / CHEMOTHERAPY N Other # 2 Y BLOOD DISEASES N EAR OR HEARING PROBLEMS N MUMPS N SHINGLES Y BOWEL PROBLEMS N DEPRESSION (INCLUDING POST ) N STROKE/TIA Y ULCERS N BENIGN PROSTATIC HYPERPLASIA N MEASLES N MYOCARDIAL INFARCTION N OBESITY Y GERD/NAUSEA N ANEURYSM N Increased Urination Y URINARY/BLADDER/KIDNEY PROBLEMS N CORONARY ARTERY DISEASE (CAD) N ADDICTION CONCERNS N ENDOMETRIOSIS N Impotence N USE OF BLOOD THINNERS Y SKIN PROBLEMS N EMPHYSEMA N GASTROINTESTINAL DISORDER N PERIPHERAL VASCULAR DISEASE N MUSCLE,JOINT OR BONE PROBLEMS N GASTROINTESTINAL BLEEDING N BLOOD CLOTS N Difficulty Urinating N ASTHMA N CATARACTS Y ERECTILE DYSFUNCTION N VARICOSITIES N GI PROBLEMS N Low Testosterone N INFERTILITY N AIDS/HIV N CHEMOTHERAPY / RADIATION N LIVER DISEASE N MALE HYPOGONADISM N HYPERTENSION Y Deficiency N TOURETTE'S N ANXIETY DISORDER N BLOOD TRANSFUSION N ANEMIA/BLOOD DISORDER N CHRONIC EAR INFECTIONS N BRONCHITIS N TUBERCULOSIS N GLAUCOMA Y FOOT PROBLEM Y DIVERTICULITIS N CHICKENPOX N SLEEP APNEA N INFECTIOUS DISEASE N HEART ARRHYTHMIA Y PROSTATE N INSOMNIA N HIGH CHOLESTEROL / HYPERLIPIDEMIA Y HYPERTHYROIDISM N EYE PROBLEMS N EDEMA N CHRONIC PAIN SYNDROME N HYPOTHYROIDISM N CAROTID BLOCKAGE N CONSTIPATION N BACK / NECK PROBLEMS Y HAVE YOU BEEN HOSPITALIZED OR SEEN IN [facility] IN THE PAST YEAR ? N ATHEROSCLEROSIS N BREAST PROBLEMS N DIALYSIS N ECZEMA N OSTEOPOROSIS N ARTHRITIS N NO SIGNIFICANT PAST MEDICAL HISTORY N APPENDICITIS N DIABETES, TYPE Y BAD TEETH N PARKINSON N ENT N HEARTBURN / REFLUX Y AUTISM SPECTRUM DISORDER (ASD) N HEPATITIS / LIVER DISEASE N GOUT N SLEEP DISORDER N ALZHEIMER'S DISEASE N Brain Problems N HERPES N DEMENTIA N HEADACHES/MIGRAINES N SEIZURES/EPILEPSY N HEART MURMUR N VASCULAR DISEASE N PACEMAKER N Blood Disorder N DIZZINESS N HEART DISEASE/HEART PROBLEMS N KIDNEY DISEASE N MULTIPLE SCLEROSIS N CARDIAC ARRHYTHMIA Y CANCER: SPECIFY N ANESTHESIA COMPLICATIONS N ATRIAL FIBRILLATION Y Gall Stones N PULMONARY EMBOLISM N AUTOIMMUNE DISEASE N Gynecological History Statement/Question Response Date of Last Pap Date of Last Mammogram 12/02/2015 Date of Last Colonoscopy 11/10/2015 Most Recent Bone Density 05/27/2020 Obstetrics History GPAL:G 0 P 0 0 0 0 Immunizations Vaccine Type Date Status Note Provider Nam e and Address Organization Details Recorded Time pneumococcal polysaccharide PPV23 3 completed Maryam Melendez RN null, [place] - [facility] [employer] 12/19/2022 12:37:49 COVID-19, mRNA, LNP-S, PF, 30 mcg/0.3 mL dose 2 completed Not Available [facility] 05/17/2023 07:50:49 Influenza, high-dose, quadrivalent, PF 0 completed Not Available [facility] 05/17/2023 07:50:48 influenza, unspecified formulation 8 completed Not Available [facility] 05/17/2023 07:50:49 Influenza, high-dose, trivalent, PF 7 completed Not Available [facility] 05/17/2023 07:50:49 influenza, unspecified formulation 5 completed Not Available [facility] 05/17/2023 07:50:49 Influenza, high-dose, trivalent, PF 4 completed Not Available [facility] 05/17/2023 07:50:49 COVID-19, mRNA, LNP-S, PF, 30 mcg/0.3 mL dose 1 completed Not Available [facility] 05/17/2023 07:50:49 COVID-19, mRNA, LNP-S, PF, 30 mcg/0.3 mL dose 1 completed Not Available [facility] 05/17/2023 07:50:49 zoster live 5 completed Not Available [facility] 05/17/2023 07:50:49 Influenza, high-dose, quadrivalent, PF 1 completed Not Available [facility] 05/17/2023 07:50:49 Influenza, high-dose, trivalent, PF 9 completed Not Available [facility] 05/17/2023 07:50:49 Pneumococcal conjugate PCV 13 6 completed Not Available [facility] 05/17/2023 07:50:49 Influenza, split virus, trivalent, preservative 4 completed Not Available [facility] 05/17/2023 07:50:49 Past Encounters Encounter ID Performer Location Encounter Start Date Encounter Closed Date Diagnosis/Indication Diagnosis SNOMED-CT Code Diagnosis ICD10 Code Diagnosis Note [id number] Humphrey Britt MD [facility] [place] [facility] [address] [address] 09/20/2020 00:00:00 10/17/2020 12:00:44 [id number] Anisha Madrigal MD _CAROLYN IGRATION_ DEFAULT_1 _1 , 10/28/2020 00:00:00 10/28/2020 16:33:44 [id number] Humphrey Britt MD [facility] [place] [facility] [address] [address] 03/14/2021 00:00:00 04/07/2021 22:44:15 [id number] MD ELAINE Eric IGRATION_ DEFAULT_1 _1 , 06/02/2021 00:00:00 06/02/2021 10:02:57 [id number] Jared Jacobo MD [facility]_[address] [address] 06/07/2021 00:00:00 06/07/2021 15:46:28 [id number] Jared Jacobo MD [facility] [place] [address] 1 07/05/2021 00:00:00 07/05/2021 16:59:11 [id number] Humphrey Britt MD [facility] Internal Med [facility] [address] [place] [address] 1 08/03/2021 00:00:00 08/05/2021 13:04:39 [id number] Jared Jacobo MD [facility] [place] [address] 1 08/16/2021 00:00:00 08/16/2021 15:37:01 [id number] Humphrey Britt MD [facility] Internal Med [facility] [address] [place] [address] 1 09/07/2021 00:00:00 09/18/2021 21:21:27 [id number] Humphrey Britt MD [facility] Internal Med [facility] [address] [place] [address] 1 10/12/2021 00:00:00 10/23/2021 18:04:31 [id number] Humphrey Britt MD [facility] Internal Med [facility] [address] [place] [address] 1 11/08/2021 00:00:00 11/08/2021 21:23:42 [id number] [facility] _ATHENA_M IGRATION_ DEFAULT_1 _1 , 12/15/2021 00:00:00 12/15/2021 20:42:54 [id number] Jared Jacobo MD [facility] [place] [address] 1 02/14/2022 00:00:00 02/14/2022 15:28:48 [id number] Humphrey Britt MD [facility] Internal Med [place] [address] 1 08/14/2022 15:01:14 08/14/2022 16:53:44 Benign essential hypertension 0384721 I10 Diabetes mellitus 984814 09 E13.42 Dyslipidemia 173143821 E 78.5 Hypothyroidism 69232628 E03.9 [id number] Anisha Madrigal MD [facility] [place] [address] [place] [address] 12/08/2022 13:54:55 12/08/2022 14:57:55 Type 2 diabetes mellitus without complication 024414438 E11.9 a1c of 7.9% overall in range- continue on tresiba 56 units at bedtime and patient aware to increase or decrease every 4 days to maintain fasting glucose of 90-130 mg/dL Continue on bydureon 2 mg SQ once weekly along with glipizide scale as insurance will not cover glimepirid e along with metformin twice daily for insulin sensitizat ion. Candidiasis of vagina 72 390956 B37.31 She is no longer on farxiga- advised to stop due to yeast infection- treat with fluconazol e- patient does have urologist and encouraged to follow up if she is experienci ng further issues with UTIS when off farxiga- she voiced understand ing. Hypothyroidism 68488115 E03.9 Continue on LT4 50 mcg daily. Spent up to 25 minutes preparing to see the patient (eg, review of tests), obtaining and/or reviewing separately obtained history, performing a medically appropriat e examinatio n and evaluation , counseling and educating the patient, ordering medication s, tests, along with documentin g clinical informatio n in the electronic health record, independen tly interpreti ng results and communicat ing results to the patient. Patient can be followed by PCP - she/he is aware of my resignatio n and last day of February 16. If needed his/her PCP can refer patient to another endocrinol ogist in the area. All questions /concerns answered and refills necessary at visit today. [id number] Humphrey Britt MD [facility] [place] [address] [facility], [place] [address] [place] [address] 12/18/2022 14:11:51 12/18/2022 14:54:36 Hypothyroidism 86115597 E03.9 Benign ess ential hypertension 3936210 I10 Type 2 liberty betes mellitus without complication 117621794 E11.9 Administra tion of pneumococcal vaccine 57867989 Z23 [id number] Humphrey Britt MD [facility] [place] [facility] [address] [address] 04/23/2023 15:01:47 04/23/2023 16:58:40 Benign essential hypertension 8540195 I10 Hypothyroidism 77891722 E03.9 Type 2 liberty betes mellitus without complication 783054501 E11.9 Internal c arotid artery stenosis 548007833 I65.29 Atrial fibrillation 4943 6004 I48.91 Diabetes mellitus 773559 09 E13.42 Hypercholesterolemia 136 88768 E78.00 [id number] Marques Roberts MD [facility] [place] [facility] [address] [place] [address] 03/26/2024 15:07:24 03/26/2024 16:40:21 Pain of left ankle joint [id number] 7474418 M25.796 [id number] Bindu White NP [facility] Pulmon[facility] [address] [address] 07/23/2024 15:50:09 07/25/2024 14:55:37 Sleep apnea 29230012 G47.30 Sleep study order todayESS-4 Discussed sleep hygeineAdv ised good sleep habits and patterns:- Set a goal for at least 7 to 8 hours of sleep time per day-Use the bed mainly for sleep and to go to bed only when tired. If unable to fall asleep after 30 minutes, patient should get out of bed but should not engage in any activity that requires sustained mental alertness. -Maintain a bedtime and wake-up time even on weekends or day off of work.-Avoi d excessive naps during the daytime. If a nap is necessary, limit to no more than 30 minutes.-M inimize enviroment al noise, bright lights, and extremties in bedroom temperatur es.-Avoid alcohol, caffeinate d beverages, and nicotine products for at least 6 hours prior to bedtime.-A void strenuous exercise and large meals for at least 4 hours prior to bedtime.-D iscussed reportable signs and symptoms of concern Dyspnea on exertion 6084 5006 R06.09 Lab work todayCXR orderMmrc- 3PFT for baselineMa y need to consider a ECHO if not done by cardiology if pulmonary work-up is not impressive Aware to use Albuterol inhaler as needed-ok to use when sobUse home O2 at 1-2 L NC-if sats are <90 (has): patient sats in room at rest 87% today-plac ed on 1 L NC and increased to 91%follow- up once testing is complete-s ooner for any changes in breathing and increase use of inhaler Body mass index 30+ - obesity 992925477 Z68.33 Encourage healthy diet and exercise to improve weightdisc ussed weight effect on sleep and sleep apnea Atrial fibrillation 4943 6004 I48.91 managed by cardiology Congestive heart failure 84149343 I50.9 managed by cardiology Dependence on supplemental oxygen when ambulating 9900342807 9106 Z99.81 advised must wear O2 at home and when out-does have portable-p t reluctant to do so Health Concerns Section Related Observation LastModified by Organization Detai ls LastModified Time None Recorded Concern Status LastModified by Organization Details LastModified Time None Recorded Advance Directives Directive N: Information provided Payers Insurance Date Sequence Insurance Name Policy Number Policy Rao Covered Member ID Rao Member ID Guarantor Name 03/26/2024 1 [facility] (MEDICARE REPLACEMENT/ ADVANTAGE - PPO) [id number] Nayeli A Delay [id number] Nayeli A Delay 07/20/2024 1 [facility] [facility] (MEDICARE REPLACEMENT/ ADVANTAGE - PPO) [id number] 1 Nayeli A Delay [id number] Nayeli A Delay Notes Date Note Type Note Provider Name and Address Organization Details Recorded Time 12/09/19 23 text/htm l ROS as noted in the HPI 81 yo female comes in for follow up in management of overall controlled type 2 DM (A1C of 7.9%), dyslipidemia. last seen in December at that time we had patient continue on tresiba 40 units at bedtime and titrate by 4 units every 4 days until fasting glucose 90-130 mg/dL.We had patient continue on bydureon 2 mg SQ once weekly along with glimepiride scale and metformin twice daily for insulin sensitization. we continued statin therapy She is no longer taking the farxiga as it caused yeast infection and itchiness. Her sugars are runningunder 150 mg/dL typicallydenies any hypoglycemiashe does run over 200 mg/dL on occasion She is no longer taking the glimepiride- they want her to go on glipizide/insurance. She is now taking tresiba 56 units at bedtime. labs from 06/29:a1c 7.9%microalbumin 220 ug/mgTSH of 2.590 uIU/mlFT4 of 1.2 ng/dLLFT normalCr normalglucose 165 mg/dL111/269/52/5 Anisha Madrigal MD [address], [facility], [place], [address], [employer] 12/08/2022 20:45:13 12/19/19 23 text/htm l Hypertension no headache or dizzinessFatty liver followed by blood workDyslipidemia tries to watch thatNeuropathy bothers herUrinary issues botherDiabetes no polyphagia polydipsiaHypothyroid no heat or cold intolerance Humphrey Britt MD [address], [facility], [place], [address], [employer] 12/18/2022 22:53:54 04/23/20 23 text/htm l Hypertension no headache or dizzinessFatty liver followed by blood workDyslipidemia tries to watch thatNeuropathy bothers herUrinary issues botherDiabetes no polyphagia polydipsiaHypothyroid no heat or cold intolerance Humphrey Britt MD [address], [facility], [place], [address], [employer] 04/27/2023 21:05:28 07/24/19 25 text/htm l Obstructive Sleep ApneaReported by PatientHPIFor associated symptoms, patient reportspostnasal drip,awakening short of breath,daytime sleepiness,suddenly falling asleep during the day,excess napping,poor concentration, andamnesiabut reportsno morning dry mouth,no morning headache,no dysphagia,no night sweats,no impaired work performance,no nasal congestion,no snoring,no gasping for air,no witnessed apnea,no hyponasal speech,no mouth breathing,no hyperactivity, andno irritability. For severity, patient reportsmoderate. For context, patient reportsinconsistent sleep routine. For aggravating factors, patient reportsfatigueandpositioning.ref erred by cardiology for hx of afib and evaluation for OSADaughter is with patient today-notes that her mom will sleep all day everyday DyspneaReported by PatientHPIFor quality, patient reportsdyspnea. For context, patient reportswith activity. For aggravating factors, patient reportsactivity. For associated symptoms, patient reportsfatigueandweaknessbut reportsno chest pain,no palpitations,no orthopnea,no pnd,no fever,no chills,no wheezing,no dietary indiscretion,no sputum production,no hemoptysis,no weight gain, andno dyspepsia. For alleviating factors, patient reportsrest.non smokersecond hand smoke exposure-parents, siblings, spousepatient notes she has had O2 sats at home as low as 83%review of chart shows hx of a-fib, cardiomegaly, chfPatient has home O2 per pt for night time-not sure why she has it and is reluctant to use her O2 Bindu White NP [address] [facility], [facility] [address], [place], [address], [place] - [facility] [employer] 07/24/2024 09:24:15 OBGyn Episode No OBEpisode recorded.
--- OUTSIDE RECORDS SUMMARY | 2024-11-28 13:18 | XMS_ITS | Data Portability ---
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 We will see her in 3 months CMP lipid A1c will be ordered healthy lifestyle care instructions. She does see a clinical orthoptist regularly follow up 3 months [email or web address] Not available 04/05/2024 15:55:40 05/21/2024 05/21/2024 history suggests benign positional vertigo we will give meclizine and order vestibular therapy. Dysuria check urine healthy lifestyle care instructions to help with weight management [email or web address] Not available 05/24/2024 21:11:24 08/19/2024 08/19/2024 She will continue to walk with walker she will have brought up-to-date on immunizations today healthy lifestyle care instructions blood work diagnosis in the assessment and plan have been discussed in the management of those problems she will see me back in 4 months [email or web address] Not available 08/19/2024 20:40:47 11/18/2024 11/18/2024 She went and saw the urologist did not have a whole lot to add but the bottom line is she needs to eat better and we talked about that at length does not want see dietitian she says she knows what she wants to do and she is going to do it she knows what she is supposed to eat and I told her that is going to be very difficult to control her blood sugars and uncontrolled blood sugars can lead to urinary tract infections heart attack stroke cancer blindness kidney disease a whole host of vascular nonvascular problems. I will see her back in about 2-3 months full blood work at that time [email or web address] Not available 11/18/2024 21:56:03 Plan of Treatment Reminders Order Date Submit Date Provider Last Modified By Organization Details Last Modified Time Details Appointments ANY 2024 03:00P Heavenly Britt MD Not available Not available Not available Lab HbA1c (hemoglob in A1c), blood 2024 025 [facility], [address], [place], [address], 09/11/2024 11:37:57 unlisted lab - T4, free 2024 025 [facility], [address], [place], [address], 09/11/2024 11:37:54 T3, free, serum or plasma 2024 025 [facility], [address], [place], [address], 09/11/2024 11:38:00 TSH, ultra-sen sitive, serum 2024 025 [facility], [address], [place], [address], 09/11/2024 11:37:58 lipid panel, serum 2024 025 [facility], [address], [place], [address], 09/11/2024 11:37:53 CMP, serum or plasma 2024 025 [facility], [address], [place], [address], 09/11/2024 11:37:55 CBC w/ auto diff 2024 025 [facility], [address], [place], [address], 09/11/2024 11:37:59 urinalysi s complete, reflex culture 2024 025 [email or web address], [address], [place], [address], 07/02/2024 13:00:11 Referral vestibula r therapy referral 2024 025 [facility] [place], [address] [facility], [place], [address], 06/04/2024 08:53:14 Procedures None recorded. Surgeries None recorded. Imaging bone density 2023 024 [facility] ([facility]), [address] [facility], [place], [address], 02/04/2024 16:36:00 Medication Orders meclizine 25 mg tablet 2024 025 [id number], [address], [place], [place], [id number], 05/21/2024 17:26:38 Patient TargetsNo targets recorded. Patient Instructions Encounter Date Encounter Id Patient Instructions Last Modified By Organization Details Last Modified Time 01/08/2024 [id number] preventing falls : care instructions [email or web address] Not available 01/08/2024 17:23:49 Medicare [facility] Preventive Checklist [email or web address] Not available 01/08/2024 17:23:49 04/01/2024 [id number] A healthy lifestyle: care instructions [email or web address] Not available 04/01/2024 16:39:48 05/21/2024 [id number] A healthy lifestyle: care instructions [email or web address] Not available 05/21/2024 17:26:38 08/19/2024 [id number] A healthy lifestyle: care instructions [email or web address] Not available 08/19/2024 16:31:33 11/18/2024 [id number] A healthy lifestyle: care instructions [email or web address] Not available 11/18/2024 17:17:37 Reason for Referral Vestibular Therapy Referral for Vertigo Referring Physician: Humphrey Britt, Internal Medicine, Encounter Date: 05/21/2024 Results Created Date Observation Date Name Description Value Unit Range Abnormal Flag Note LastModifiedBy Organization Detail LastModifiedTime 01/24/20 24 01/25/2024 MICRO SCOPI C EXAMI NATIO N WBC >30 /hpf 0-5 abnormal Not Available [facility] ([facility]) [address] [place], [address], 01/28/2024 13:10:41 01/24/20 24 01/25/2024 MICRO SCOPI C EXAMI NATIO N RBC 11-30 /hpf 0-2 abnormal Not Available [facility] ([facility]) [address] [place], [address], 01/28/2024 13:10:41 01/24/20 24 01/25/2024 MICRO SCOPI C EXAMI NATIO N epithelial cells (non renal) None seen /hpf 0-10 Not Available [facility] ([facility]) [address] [place], [address], 01/28/2024 13:10:41 01/24/20 24 01/25/2024 MICRO SCOPI C EXAMI NATIO N casts None seen /lpf nonese en Not Available [facility] ([facility]) [address] [place], [address], 01/28/2024 13:10:41 01/24/20 24 01/25/2024 MICRO SCOPI C EXAMI NATIO N bacteria Modera te nonese en/few abnormal Not Available [facility] ([facility]) [address] [place], [address], 01/28/2024 13:10:41 01/24/20 24 01/25/2024 UA/M W/RFL X CULTU RE, ROUTI NE specific gravity 1.012 1.005- 1.030 Not Available [facility] ([facility]) [address] [place], [address], 01/28/2024 13:10:41 01/24/20 24 01/25/2024 UA/M W/RFL X CULTU RE, ROUTI NE pH 6.5 5.0-7. 5 Not Available [facility] ([facility]) [address] [facility], [place], [address], 01/28/2024 13:10:41 01/24/20 24 01/25/2024 UA/M W/RFL X CULTU RE, ROUTI NE urine-color YELLOW yellow Not Available [facility] ([facility]) [address] [place], [address], 01/28/2024 13:10:41 01/24/20 24 01/25/2024 UA/M W/RFL X CULTU RE, ROUTI NE appearance TURBID clear abnormal Not Available [facility] ([facility]) [address] [place], [address], 01/28/2024 13:10:41 01/24/20 24 01/25/2024 UA/M W/RFL X CULTU RE, ROUTI NE WBC esterase 3+ negati ve abnormal Not Available [facility] ([facility]) [address] [place], [address], 01/28/2024 13:10:41 01/24/20 24 01/25/2024 UA/M W/RFL X CULTU RE, ROUTI NE protein 2+ negati ve/tra ce abnormal Not Available [facility] ([facility]) [address] [place], [address], 01/28/2024 13:10:41 01/24/20 24 01/25/2024 UA/M W/RFL X CULTU RE, ROUTI NE glucose NEGATI VE negati ve Not Available [facility] ([facility]) [address] [place], [address], 01/28/2024 13:10:41 01/24/20 24 01/25/2024 UA/M W/RFL X CULTU RE, ROUTI NE ketones NEGATI VE negati ve Not Available [facility] ([facility]) [address] [place], [address], 01/28/2024 13:10:41 01/24/20 24 01/25/2024 UA/M W/RFL X CULTU RE, ROUTI NE occult blood 2+ negati ve abnormal Not Available [facility] ([facility]) [address] [place], [address], 01/28/2024 13:10:41 01/24/20 24 01/25/2024 UA/M W/RFL X CULTU RE, ROUTI NE bilirubin NEGATI VE negati ve Not Available [facility] ([facility]) [address] [place], [address], 01/28/2024 13:10:41 01/24/20 24 01/25/2024 UA/M W/RFL X CULTU RE, ROUTI NE urobilinogen ,semi-qn 0.2 mg/dL 0.2-1. 0 Not Available [facility] ([facility]) [address] [place], [address], 01/28/2024 13:10:41 01/24/20 24 01/25/2024 UA/M W/RFL X CULTU RE, ROUTI NE nitrite, urine POSITI VE negati ve abnormal Not Available [facility] ([facility]) [address] [facility], [place], [address], 01/28/2024 13:10:41 01/24/20 24 01/25/2024 UA/M W/RFL X CULTU RE, ROUTI NE microscopic examination SEE BELOW: Micro scopi c was indic ated and was perfo rmed. Not Available [facility] ([facility]) [address] [facility], [place], [address], 01/28/2024 13:10:41 01/24/20 24 01/25/2024 UA/M W/RFL X CULTU RE, ROUTI NE urinalysis reflex COMMEN T This speci men has refle xed to a Urine Cultu re. Not Available [facility] ([facility]) [address] [facility], [place], [address], 01/28/2024 13:10:41 01/24/20 24 01/28/2024 URINE CULTU RE, ROUTI NE urine culture, routine Final report abnormal Not Available [facility] ([facility]) [address] [facility], [place], [address], 01/28/2024 13:10:42 01/24/20 24 01/28/2024 URINE CULTU RE, ROUTI NE result 1 Escher ichia coli abnormal Cefaz sebas <=4 ug/mL Cefaz sebas with an TYRONE <=16 predi cts susce ptibi lity to the oral agent s cefac isaias, cefdi jarad, cefpo doxim e, cefpr ozil, cefur oxime , cepha lexin , and lorac arbef when used for thera py of uncom plica dorcas urina ry tract infec tions due to E. coli, Klebs iella pneum oniae , and Prote us mirab ilis. Great er than 100,0 00 colon y formi ng units per mL Not Available [facility] ([facility]) [address] [facility], [place], [address], 01/28/2024 13:10:42 01/24/2001/28/2024 URINE CULTU RE, ROUTI NE antimicrobia l susceptibili ty Commen t S = Susce ptibl e; I = Inter media te; R = Resis tant P = Posit efrain; N = Negat efrain MICS are expre ssed in micro grams per mL Antib iotic RSLT# 1 RSLT# 2 RSLT# 3 RSLT# 4 Amoxi cilli n/Cla vulan ic Acid S Ampic illin S Cefep karla S Ceftr iaxon e S Cefur oxime S Cipro floxa gregorio S Ertap enem S Genta micin S Imipe nem S Levof loxac in S Merop enem S Nitro furan toin S Piper acill in/Ta zobac loya S Tetra cycli ne S Tobra mycin S Trime thopr im/Alejandro lfa S Not Available [facility] ([facility]) [address] [place], [address], 01/28/2024 13:10:42 02/12/2002/13/2024 T4, FREE T4,free(dire ct) 1.19 NG/dL 0.82-1 .77 Not Available [facility] ([facility]) [address] [place], [address], 02/13/2024 10:13:58 02/12/2002/13/2024 TSH TSH 2.270 uIU/m L 0.450- 4.500 Not Available [facility] ([facility]) [address] [place], [address], 02/13/2024 10:13:59 02/12/2002/13/2024 TRIIO DOTHY KAYLAN E (T3), FREE triiodothyro nine (T3), free 2.2 pg/mL 2.0-4. 4 Not Available [facility] ([facility]) [address] [place], [address], 02/13/2024 10:14:00 04/28/20 24 04/29/2024 LIPID PANEL cholesterol, total 107 mg/dL 100-19 9 Not Available [facility] ([facility]) [address] [place], [address], 04/29/2024 09:07:23 04/28/20 24 04/29/2024 LIPID PANEL triglyceride s 194 mg/dL 0-149 above high normal Not Available [facility] ([facility]) [address] [place], [address], 04/29/2024 09:07:23 04/28/20 24 04/29/2024 LIPID PANEL HDL cholesterol 55 mg/dL >39 Not Available [facility]) [address] [place], [address], 04/29/2024 09:07:23 04/28/20 24 04/29/2024 LIPID PANEL VLDL cholesterol lin 30 mg/dL 5-40 Not Available [facility] ([facility]) [address] [place], [address], 04/29/2024 09:07:23 04/28/20 24 04/29/2024 LIPID PANEL LDL chol calc ([facility]) 22 mg/dL 0-99 Not Available [facility]) [address] [place], [address], 04/29/2024 09:07:23 04/28/20 24 04/29/2024 COMP. METAB OLIC PANEL (14) glucose 182 mg/dL 70-99 above high normal Not Available [facility] ([facility]) [address] [place], [address], 04/29/2024 09:07:24 04/28/20 24 04/29/2024 COMP. METAB OLIC PANEL (14) BUN 20 mg/dL 8-27 Not Available [facility] ([facility]) [address] [place], [address], 04/29/2024 09:07:24 04/28/20 24 04/29/2024 COMP. METAB OLIC PANEL (14) creatinine 0.80 mg/dL 0.57-1 .00 Not Available [facility] ([facility]) [address] [facility], [place], [address], 04/29/2024 09:07:24 04/28/20 24 04/29/2024 COMP. METAB OLIC PANEL (14) eGFR 74 mL/mi n/1.7 3 >59 Not Available [facility] ([facility]) [address] [facility], [place], [address], 04/29/2024 09:07:24 04/28/20 24 04/29/2024 COMP. METAB OLIC PANEL (14) BUN/creatini ne ratio 25 12-28 Not Available [facility] ([facility]) [address] [facility], [place], [address], 04/29/2024 09:07:24 04/28/20 24 04/29/2024 COMP. METAB OLIC PANEL (14) sodium 141 mmol/ L 134-14 4 Not Available [facility] ([facility]) [address] [place], [address], 04/29/2024 09:07:24 04/28/20 24 04/29/2024 COMP. METAB OLIC PANEL (14) potassium 4.8 mmol/ L 3.5-5. 2 Not Available [facility] ([facility]) [address] [facility], [place], [address], 04/29/2024 09:07:24 04/28/20 24 04/29/2024 COMP. METAB OLIC PANEL (14) chloride 100 mmol/ L 96-106 Not Available [facility] ([facility]) [address] [facility], [place], [address], 04/29/2024 09:07:24 04/28/20 24 04/29/2024 COMP. METAB OLIC PANEL (14) carbon dioxide, total 26 mmol/ L 20-29 Not Available [facility] ([facility]) [address] [facility], [place], [address], 04/29/2024 09:07:24 04/28/20 24 04/29/2024 COMP. METAB OLIC PANEL (14) calcium 9.0 mg/dL 8.7-10 .3 Not Available [facility] ([facility]) [address] [facility], [place], [address], 04/29/2024 09:07:24 04/28/20 24 04/29/2024 COMP. METAB OLIC PANEL (14) protein, total 7.3 g/dL 6.0-8. 5 Not Available [facility] ([facility]) [address] [facility], [place], [address], 04/29/2024 09:07:24 04/28/20 24 04/29/2024 COMP. METAB OLIC PANEL (14) albumin 4.3 g/dL 3.7-4. 7 Not Available [facility] ([facility]) [address] [facility], [place], [address], 04/29/2024 09:07:24 04/28/20 24 04/29/2024 COMP. METAB OLIC PANEL (14) globulin, total 3.0 g/dL 1.5-4. 5 Not Available [facility] ([facility]) [address] [facility], [place], [address], 04/29/2024 09:07:24 04/28/20 24 04/29/2024 COMP. METAB OLIC PANEL (14) bilirubin, total 0.3 mg/dL 0.0-1. 2 Not Available [facility] ([facility]) [address] [facility] [place], [address], 04/29/2024 09:07:24 04/28/20 24 04/29/2024 COMP. METAB OLIC PANEL (14) alkaline phosphatase 100 IU/L 44-121 Not Available [facility]) [address] [facility], [place], [address], 04/29/2024 09:07:24 04/28/20 24 04/29/2024 COMP. METAB OLIC PANEL (14) AST (SGOT) 28 IU/L 0-40 Not Available [facility] ([facility]) [address] [facility] [place], [address], 04/29/2024 09:07:24 04/28/20 24 04/29/2024 COMP. METAB OLIC PANEL (14) ALT (SGPT) 25 IU/L 0-32 Not Available [facility] ([facility]) [address] [facility] [place], [address], 04/29/2024 09:07:24 04/28/20 24 04/29/2024 HEMOG LOBIN A1C hemoglobin A1C 8.6 % 4.8-5. 6 above high normal Predi abete s: 5.7 - 6.4 Diabe meg: >6.4 Glyce tyrone contr ol for adult s with diabe meg: <7.0 Not Available [facility] ([facility]) [address] [facility], [place], [address], 04/29/2024 09:07:25 05/21/19 25 05/22/2024 MICRO SCOPI C EXAMI NATIO N WBC >30 /hpf 0-5 abnormal Not Available [facility] ([facility]) [address] [facility], [place], [address], 05/23/2024 06:19:06 05/21/1905/22/2024 MICRO SCOPI C EXAMI NATIO N RBC 0-2 /hpf 0-2 Not Available [facility] ([facility]) [address] [place], [address], 05/23/2024 06:19:06 05/21/19 25 05/22/2024 MICRO SCOPI C EXAMI NATIO N epithelial cells (non renal) 0-10 /hpf 0-10 Not Available [facility] ([facility]) [address], [place], [address], 05/23/2024 06:19:06 05/21/1905/22/2024 MICRO SCOPI C EXAMI NATIO N casts None seen /lpf nonese en Not Available [facility] ([facility]) [address], [place], [address], 05/23/2024 06:19:06 05/21/1905/22/2024 MICRO SCOPI C EXAMI NATIO N bacteria None seen nonese en/few Not Available [facility] ([facility]) [address], [place], [address], 05/23/2024 06:19:06 05/21/1905/22/2024 UA/M W/RFL X CULTU RE, ROUTI NE specific gravity 1.021 1.005- 1.030 Not Available [facility] ([facility]) [address] [facility], [place], [address], 05/23/2024 06:19:07 05/21/1905/22/2024 UA/M W/RFL X CULTU RE, ROUTI NE pH 5.5 5.0-7. 5 Not Available [facility] ([facility]) [address] [facility] [place], [address], 05/23/2024 06:19:07 05/21/1905/22/2024 UA/M W/RFL X CULTU RE, ROUTI NE urine-color Yellow yellow Not Available [facility] ([facility]) [address] [facility], [place], [address], 05/23/2024 06:19:07 05/21/1905/22/2024 UA/M W/RFL X CULTU RE, ROUTI NE appearance Clear clear Not Available [facility] ([facility]) [address] [facility] [place], [address], 05/23/2024 06:19:07 05/21/19 25 05/22/2024 UA/M W/RFL X CULTU RENOEMY NE WBC esterase 2+ negati ve abnormal Not Available [facility] ([facility]) [address] [facility], [place], [address], 05/23/2024 06:19:07 05/21/1905/22/2024 UA/M W/RFL X CULTU RENOEMY NE protein Trace negati ve/tra ce Not Available [facility] ([facility]) [address] [facility], [place], [address], 05/23/2024 06:19:07 05/21/1905/22/2024 UA/M W/RFL X CULTU RENOEMY NE glucose 3+ negati ve abnormal Not Available [facility] ([facility]) [address] [facility], [place], [address], 05/23/2024 06:19:07 05/21/19 25 05/22/2024 UA/M W/RFL X CULTU RENOEMY NE ketones Negati ve negati ve Not Available [facility] ([facility]) [address] [facility], [place], [address], 05/23/2024 06:19:07 05/21/1905/22/2024 UA/M W/RFL X CULTU RENOEMY NE occult blood 1+ negati ve abnormal Not Available [facility] ([facility]) [address] [facility], [place], [address], 05/23/2024 06:19:07 05/21/19 25 05/22/2024 UA/M W/RFL X CULTU RE ROUTI NE bilirubin Negati ve negati ve Not Available [facility] ([facility]) [address] [place], [address], 05/23/2024 06:19:07 05/21/1905/22/2024 UA/M W/RFL X CULTU RE, ROUTI NE urobilinogen ,semi-qn 0.2 mg/dL 0.2-1. 0 Not Available [facility] ([facility]) [address] [facility], [place], [address], 05/23/2024 06:19:07 05/21/1905/22/2024 UA/M W/RFL X CULTU RE, ROUTI NE nitrite, urine Negati ve negati ve Not Available [facility] ([facility]) [address] [place], [address], 05/23/2024 06:19:07 05/21/1905/22/2024 UA/M W/RFL X CULTU RE, ROUTI NE microscopic examination See below: Micro scopi c was indic ated and was perfo rmed. Not Available [facility] ([facility]) [address] [facility], [place], [address], 05/23/2024 06:19:07 05/21/1905/22/2024 UA/M W/RFL X CULTU RE, ROUTI NE urinalysis reflex Commen t This speci men has refle xed to a Urine Cultu re. Not Available [facility] ([facility]) [address] [facility], [place], [address], 05/23/2024 06:19:07 05/21/1905/23/2024 URINE CULTU RE, ROUTI NE urine culture, routine Final report Not Available [facility] ([facility]) [address] [facility], [place], [address], 05/23/2024 06:19:07 05/21/1905/23/2024 URINE CULTU RE, ROUTI NE result 1 Commen t Cultu re shows less than 10,00 0 colon y formi ng units of bacte zuleika per marbella liter of urine . This colon y count is not gener ally consi dered to be clini stephania curtis beaver Not Available [facility] ([facility]) [address] [place], [address], 05/23/2024 06:19:07 09/11/19 25 09/11/2024 LIPID PANEL cholesterol, total 132 mg/dL 100-19 9 Not Available [facility] ([facility]) [address] [place], [address], 09/11/2024 11:37:53 09/11/19 25 09/11/2024 LIPID PANEL triglyceride s 333 mg/dL 0-149 above high normal Not Available [facility] ([facility]) [address] [place], [address], 09/11/2024 11:37:53 09/11/19 25 09/11/2024 LIPID PANEL HDL cholesterol 49 mg/dL >39 Not Available [facility]) [address] [place], [address], 09/11/2024 11:37:53 09/11/19 25 09/11/2024 LIPID PANEL VLDL cholesterol lin 49 mg/dL 5-40 above high normal Not Available [facility] ([facility]) [address] [place], [address], 09/11/2024 11:37:53 09/11/19 25 09/11/2024 LIPID PANEL LDL chol calc ([facility]) 34 mg/dL 0-99 Not Available [facility] ([facility]) [address] [place], [address], 09/11/2024 11:37:53 09/11/19 25 09/11/2024 T4, FREE T4,free(dire ct) 1.22 NG/dL 0.82-1 .77 Not Available [facility] ([facility]) [address] [place], [address], 09/11/2024 11:37:54 09/11/19 25 09/11/2024 COMP. METAB OLIC PANEL (14) glucose 290 mg/dL 70-99 above high normal Not Available [facility] ([facility]) [address] [place], [address], 09/11/2024 11:37:55 09/11/19 25 09/11/2024 COMP. METAB OLIC PANEL (14) BUN 26 mg/dL 8-27 Not Available [facility] ([facility]) [address] [place], [address], 09/11/2024 11:37:55 09/11/19 25 09/11/2024 COMP. METAB OLIC PANEL (14) creatinine 0.83 mg/dL 0.57-1 .00 Not Available [facility] ([facility]) [address] [place], [address], 09/11/2024 11:37:55 09/11/19 25 09/11/2024 COMP. METAB OLIC PANEL (14) eGFR 71 mL/mi n/1.7 3 >59 Not Available [facility] ([facility]) [address] [place], [address], 09/11/2024 11:37:55 09/11/19 25 09/11/2024 COMP. METAB OLIC PANEL (14) BUN/creatini ne ratio 31 12-28 above high normal Not Available [facility] ([facility]) [address] [place], [address], 09/11/2024 11:37:55 09/11/19 25 09/11/2024 COMP. METAB OLIC PANEL (14) sodium 135 mmol/ L 134-14 4 Not Available [facility] ([facility]) [address] [place], [address], 09/11/2024 11:37:55 09/11/19 25 09/11/2024 COMP. METAB OLIC PANEL (14) potassium 4.9 mmol/ L 3.5-5. 2 Not Available [facility] ([facility]) [address] [place], [address], 09/11/2024 11:37:55 09/11/19 25 09/11/2024 COMP. METAB OLIC PANEL (14) chloride 94 mmol/ L 96-106 below low normal Not Available [facility] ([facility]) [address] [place], [address], 09/11/2024 11:37:55 09/11/19 25 09/11/2024 COMP. METAB OLIC PANEL (14) carbon dioxide, total 21 mmol/ L 20-29 Not Available [facility] ([facility]) [address] [place], [address], 09/11/2024 11:37:55 09/11/19 25 09/11/2024 COMP. METAB OLIC PANEL (14) calcium 9.1 mg/dL 8.7-10 .3 Not Available [facility] ([facility]) [address] [place], [address], 09/11/2024 11:37:55 09/11/19 25 09/11/2024 COMP. METAB OLIC PANEL (14) protein, total 7.2 g/dL 6.0-8. 5 Not Available [facility] ([facility]) [address] [facility] [place], [address], 09/11/2024 11:37:55 09/11/19 25 09/11/2024 COMP. METAB OLIC PANEL (14) albumin 4.3 g/dL 3.7-4. 7 Not Available [facility] ([facility]) [address] [facility] [place], [address], 09/11/2024 11:37:55 09/11/19 25 09/11/2024 COMP. METAB OLIC PANEL (14) globulin, total 2.9 g/dL 1.5-4. 5 Not Available [facility] ([facility]) [address] [facility], [place], [address], 09/11/2024 11:37:55 09/11/19 25 09/11/2024 COMP. METAB OLIC PANEL (14) bilirubin, total 0.3 mg/dL 0.0-1. 2 Not Available [facility] ([facility]) [address] [place], [address], 09/11/2024 11:37:55 09/11/19 25 09/11/2024 COMP. METAB OLIC PANEL (14) alkaline phosphatase 109 IU/L 44-121 Not Available [facility] ([facility]) [address] [place], [address], 09/11/2024 11:37:55 09/11/19 25 09/11/2024 COMP. METAB OLIC PANEL (14) AST (SGOT) 26 IU/L 0-40 Not Available [facility] ([facility]) [address] [place], [address], 09/11/2024 11:37:55 09/11/19 25 09/11/2024 COMP. METAB OLIC PANEL (14) ALT (SGPT) 26 IU/L 0-32 Not Available [facility] ([facility]) [address] [place], [address], 09/11/2024 11:37:55 09/11/19 25 09/11/2024 HEMOG LOBIN A1C hemoglobin A1C 10.2 % 4.8-5. 6 above high normal Predi abete s: 5.7 - 6.4 Diabe meg: >6.4 Glyce tyrone contr ol for adult s with diabe meg: <7.0 Not Available [facility] ([facility]) [address] [place], [address], 09/11/2024 11:37:56 09/11/19 25 09/11/2024 TSH TSH 1.610 uIU/m L 0.450- 4.500 Not Available [facility] ([facility]) [address] [facility], [place], [address], 09/11/2024 11:37:58 09/11/19 25 09/11/2024 CBC WITH DIFFE RENTI AL/PL ATELE T WBC 6.7 x10e3 /uL 3.4-10 .8 Not Available [facility] ([facility]) [address] [facility], [place], [address], 09/11/2024 11:37:59 09/11/19 25 09/11/2024 CBC WITH DIFFE RENTI AL/PL ATELE T RBC 4.87 x10e6 /uL 3.77-5 .28 Not Available [facility] ([facility]) [address] [facility], [place], [address], 09/11/2024 11:37:59 09/11/19 25 09/11/2024 CBC WITH DIFFE RENTI AL/PL ATELE T hemoglobin 15.4 g/dL 11.1-1 5.9 Not Available [facility] ([facility]) [address] [place], [address], 09/11/2024 11:37:59 09/11/19 25 09/11/2024 CBC WITH DIFFE RENTI AL/PL ATELE T hematocrit 47.6 % 34.0-4 6.6 above high normal Not Available [facility] ([facility]) [address] [place], [address], 09/11/2024 11:37:59 09/11/19 25 09/11/2024 CBC WITH DIFFE RENTI AL/PL ATELE T MCV 98 fL 79-97 above high normal Not Available [facility] ([facility]) [address] [place], [address], 09/11/2024 11:37:59 09/11/19 25 09/11/2024 CBC WITH DIFFE RENTI AL/PL ATELE T MCH 31.6 pg 26.6-3 3.0 Not Available [facility] ([facility]) [address] [facility], [place], [address], 09/11/2024 11:37:59 09/11/19 25 09/11/2024 CBC WITH DIFFE RENTI AL/PL ATELE T MCHC 32.4 g/dL 31.5-3 5.7 Not Available [facility] ([facility]) [address] [facility], [place], [address], 09/11/2024 11:37:59 09/11/19 25 09/11/2024 CBC WITH DIFFE RENTI AL/PL ATELE T RDW 13.8 % 11.7-1 5.4 Not Available [facility] ([facility]) [address] [facility], [place], [address], 09/11/2024 11:37:59 09/11/19 25 09/11/2024 CBC WITH DIFFE RENTI AL/PL ATELE T platelets 265 x10e3 /uL 150-45 0 Not Available [facility] ([facility]) [address] [facility], [place], [address], 09/11/2024 11:37:59 09/11/19 25 09/11/2024 CBC WITH DIFFE RENTI AL/PL ATELE T neutrophils 69 % notest ab. Not Available [facility] ([facility]) [address] [place], [address], 09/11/2024 11:37:59 09/11/19 25 09/11/2024 CBC WITH DIFFE RENTI AL/PL ATELE T lymphs 15 % notest ab. Not Available [facility] ([facility]) [address] [place], [address], 09/11/2024 11:37:59 09/11/19 25 09/11/2024 CBC WITH DIFFE RENTI AL/PL ATELE T monocytes 14 % notest ab. Not Available [facility] ([facility]) [address] [place], [address], 09/11/2024 11:37:59 09/11/19 25 09/11/2024 CBC WITH DIFFE RENTI AL/PL ATELE T eos 1 % notest ab. Not Available [facility] ([facility]) [address] [facility], [place], [address], 09/11/2024 11:37:59 09/11/19 25 09/11/2024 CBC WITH DIFFE RENTI AL/PL ATELE T basos 1 % notest ab. Not Available [facility] ([facility]) [address] [facility], [place], [address], 09/11/2024 11:37:59 09/11/19 25 09/11/2024 CBC WITH DIFFE RENTI AL/PL ATELE T neutrophils (absolute) 4.6 x10e3 /uL 1.4-7. 0 Not Available [facility] ([facility]) [address] [facility], [place], [address], 09/11/2024 11:37:59 09/11/19 25 09/11/2024 CBC WITH DIFFE RENTI AL/PL ATELE T lymphs (absolute) 1.0 x10e3 /uL 0.7-3. 1 Not Available [facility] ([facility]) [address] [facility], [place], [address], 09/11/2024 11:37:59 09/11/19 25 09/11/2024 CBC WITH DIFFE RENTI AL/PL ATELE T monocytes(ab solute) 0.9 x10e3 /uL 0.1-0. 9 Not Available [facility] ([facility]) [address] [facility], [place], [address], 09/11/2024 11:37:59 09/11/19 25 09/11/2024 CBC WITH DIFFE RENTI AL/PL ATELE T eos (absolute) 0.1 x10e3 /uL 0.0-0. 4 Not Available [facility] ([facility]) [address] [facility], [place], [address], 09/11/2024 11:37:59 09/11/19 25 09/11/2024 CBC WITH DIFFE RENTI AL/PL ATELE T baso (absolute) 0.1 x10e3 /uL 0.0-0. 2 Not Available [facility] ([facility]) [address] [facility], [place], [address], 09/11/2024 11:37:59 09/11/19 25 09/11/2024 CBC WITH DIFFE RENTI AL/PL ATELE T immature granulocytes 0 % notest ab. Not Available [facility] ([facility]) [address] [facility], [place], [address], 09/11/2024 11:37:59 09/11/19 25 09/11/2024 CBC WITH DIFFE RENTI AL/PL ATELE T immature grans (abs) 0.0 x10e3 /uL 0.0-0. 1 Not Available [facility] ([facility]) [address] [place], [address], 09/11/2024 11:37:59 09/11/19 25 09/11/2024 TRIIO DOTHY KAYLAN E (T3), FREE triiodothyro nine (T3), free 2.3 pg/mL 2.0-4. 4 Not Available [facility] ([facility]) [address] [place], [address], 09/11/2024 11:38:00 10/07/19 25 10/07/2024 MICRO SCOPI C EXAMI NATIO N WBC >30 /hpf 0-5 abnormal Clump s of leuko cytes prese nt. Not Available [facility] ([facility]) [address] [place], [address], 10/08/2024 07:07:35 10/07/19 25 10/07/2024 MICRO SCOPI C EXAMI NATIO N RBC 3-10 /hpf 0-2 abnormal Not Available [facility] ([facility]) [address] [facility], [place], [address], 10/08/2024 07:07:35 10/07/19 25 10/07/2024 MICRO SCOPI C EXAMI NATIO N epithelial cells (non renal) 0-10 /hpf 0-10 Not Available [facility] ([facility]) [address] [facility], [place], [address], 10/08/2024 07:07:35 10/07/19 25 10/07/2024 MICRO SCOPI C EXAMI NATIO N casts None seen /lpf nonese en Not Available [facility] ([facility]) [address] [facility], [place], [address], 10/08/2024 07:07:35 10/07/19 25 10/07/2024 MICRO SCOPI C EXAMI NATIO N bacteria Few nonese en/few Not Available [facility] ([facility]) [address] [facility], [place], [address], 10/08/2024 07:07:35 10/07/19 25 10/07/2024 MICRO SCOPI C EXAMI NATIO N yeast Presen t nonese en abnormal Not Available [facility] ([facility]) [address] [facility], [place], [address], 10/08/2024 07:07:35 10/07/19 25 10/08/2024 MICRO SCOPI C EXAMI NATIO N result 1 Commen t Mixed uroge nital jamiie 10,00 0-25, 000 colon y formi ng units per mL Not Available [facility] ([facility]) [address] [facility], [place], [address], 10/08/2024 07:07:35 10/07/19 25 10/07/2024 UA+UR INE CULTU RE specific gravity >=1.03 0 1.005- 1.030 abnormal Not Available [facility] ([facility]) [address] [facility], [place], [address], 10/08/2024 07:07:36 10/07/19 25 10/07/2024 UA+UR INE CULTU RE pH 5.5 5.0-7. 5 Not Available [facility] ([facility]) [address] [facility] [place], [address], 10/08/2024 07:07:36 10/07/19 25 10/07/2024 UA+UR INE CULTU RE urine-color YELLOW yellow Not Available [facility] ([facility]) [address] [place], [address], 10/08/2024 07:07:36 10/07/19 25 10/07/2024 UA+UR INE CULTU RE appearance CLOUDY clear abnormal Not Available [facility] ([facility]) [address] [place], [address], 10/08/2024 07:07:36 10/07/19 25 10/07/2024 UA+UR INE CULTU RE WBC esterase 2+ negati ve abnormal Not Available [facility] ([facility]) [address] [facility], [place], [address], 10/08/2024 07:07:36 10/07/19 25 10/07/2024 UA+UR INE CULTU RE protein TRACE negati ve/tra ce Not Available [facility] ([facility]) [address] [place], [address], 10/08/2024 07:07:36 10/07/19 25 10/07/2024 UA+UR INE CULTU RE glucose 3+ negati ve abnormal Not Available [facility] ([facility]) [address] [place], [address], 10/08/2024 07:07:36 10/07/19 25 10/07/2024 UA+UR INE CULTU RE ketones NEGATI VE negati ve Not Available [facility] ([facility]) [address] [place], [address], 10/08/2024 07:07:36 10/07/19 25 10/07/2024 UA+UR INE CULTU RE occult blood 2+ negati ve abnormal Not Available [facility] ([facility]) [address] [place], [address], 10/08/2024 07:07:36 10/07/19 25 10/07/2024 UA+UR INE CULTU RE bilirubin NEGATI VE negati ve Not Available [facility] ([facility]) [address] [place], [address], 10/08/2024 07:07:36 10/07/19 25 10/07/2024 UA+UR INE CULTU RE urobilinogen ,semi-qn 0.2 mg/dL 0.2-1. 0 Not Available [facility] ([facility]) [address] [place], [address], 10/08/2024 07:07:36 10/07/19 25 10/07/2024 UA+UR INE CULTU RE nitrite, urine NEGATI VE negati ve Not Available [facility] ([facility]) [address] [place], [address], 10/08/2024 07:07:36 10/07/19 25 10/07/2024 UA+UR INE CULTU RE microscopic examination SEE BELOW: Micro scopi c was indic ated and was perfo rmed. Not Available [facility] ([facility]) [address] [place], [address], 10/08/2024 07:07:36 10/07/19 25 10/08/2024 UA+UR INE CULTU RE urine culture, routine FINAL REPORT Not Available [facility] ([facility]) [address] [place], [address], 10/08/2024 07:07:36 02/04/20 24 02/04/2024 bone densi ty No observ ation record ed. [facility] [address] [place], [address], 02/08/2024 16:44:50 03/17/20 24 03/17/2024 XR, chest No observ ation record ed. [address] [place], [address], 03/18/2024 16:08:43 03/17/20 24 03/17/2024 XR, ankle , 3 or more view No observ ation record ed. [address] [place], [address], 03/18/2024 16:09:15 03/17/20 24 03/17/2024 CT, angio gram, chest , w/ contr ast No observ ation record ed. [address] [place], [address], 03/18/2024 16:10:04 Result Notes None recorded. Problems Name Problem SNOMED Code Status Onset Date Resolution Date Notes Provider Name and Address Organization Details Recorded Time Type 2 diabetes mellitus 97720698 Active 2023 Humphrey Britt MD Attn: Ananya west,[address] [facility], [place], [address], [facility] 4 14:36:46 Lumbar radiculopathy 784167462 Active 2023 Humphrey Britt MD Attn: Ananya west,[address] [facility], [place], [address], [facility] - [facility] 4 14:36:47 Liver function tests outside reference range 442893618 Active 2023 Humphrey Britt MD Attn: Ananya west,[address] [facility], [place], [address], [facility] - [facility] 4 14:36:48 History of cerebrovascula r accident without residual deficits 192806123 Active 2023 Humphrey Britt MD Attn: Ananya west,[address] [facility], [place], [address], [place] - [facility] 4 14:36:51 Atrial fibrillation 27932888 Active 2023 Humphrey Britt MD Attn: Ananya west,[address] [facility], [place], [address], [place] [facility] 4 14:36:52 Hyperlipidemia 40158937 Active 2023 Humphrey Britt MD Attn: Ananya west,[address] [facility], [place], [address], [place] [facility] 4 14:36:53 Essential hypertension 96659205 Active 2023 Humphrey Britt MD Attn: Ananya west,[address] [facility], [place], [address], [place] [facility] 4 14:36:56 Anxiety 25362417 Active 2023 Humphrey Britt MD Attn: Ananya west,[address] [facility], [place], [address], [place] [facility] 4 14:36:57 Vertigo 486036746 Active 2024 Birdie Olmedo MA null, [facility] 5 15:14:29 Problem Notes None recorded. Procedures Surgical History Date Name Laterality Status Provider Name and Address Organization Details Recorded Time Angioplasty With Stent completed Jasmine Gutierrez MA [facility] 08/01/2023 14:27:24 Back Surgery completed Jasmine Gutierrez MA [facility] 08/01/2023 14:27:37 Tonsillectomy completed Jasmine Gutierrez MA [facility] 08/01/2023 14:27:46 Dilation and Curettage completed Jasmine Gutierrez MA [facility] 08/01/2023 14:27:54 Cataract surg w/iol 1 stage completed Jasmine Gutierrez MA [facility] 08/01/2023 14:28:05 Stent placemt ante carotid completed Luna Whit[place] - [facility] 01/01/2024 15:07:51 Imaging Results None recorded. Procedure Notes None recorded. Medical Equipment None Reported. Allergies Allergen ID Allergen Name Allergen Category Reaction Reaction Severity Criticality Documentation Date Start Date Code Code System Note Provider Name and Address Organization Details Recorded Time 946460 acetamino phen medicatio n rash moderate Not available 08/01/2023 161 [facility] AKIN [place], [place] - [facility] 4 14:21:32 662018 codeine medicatio n rash moderate Not available 08/01/2023 2670 RxNorm [place], [place] [facility] 4 14:21:44 297973 amoxicill in medicatio n hives moderate Not available 08/01/2023 723 RxNorm [place], [place] [facility] 4 14:21:54 555223 ampicilli n medicatio n Not available Not available Not available 11/18/20242010 733 RxNorm unrec ogniz ed react ion (text : Urtic aria, code: 22089 [id number]) (from [facility]) AKIN [place], [place] - [facility] 5 15:59:19 974383 Macrobid medicatio n Not available Not available Not available 11/18/2024 70428 1 RxNorm AKIN [place], [place] - [facility] 5 15:59:22 Medications Name Sig Start Date Stop Date Status Note LastModified by Organization Details LastModified Time doxycycline hyclate 100 mg capsule TAKE 1 CAPSULE BY MOUTH TWICE DAILY 11/06 completed Not Available Not Available Not Available atorvastati n 10 mg tablet TAKE 1/2 TABLET BY MOUTH EVERY SUNDAY, SUNDAY , SUNDAY active Not Available Not Available No t Available lisinopril 20 mg-hydrochl orothiazide 12.5 mg tablet TAKE 1 TABLET BY MOUTH TWICE DAILY active Not Available Not Available No t Available oxybutynin chloride ER 10 mg tablet,exte nded release 24 hr TAKE 1 TABLET BY MOUTH DAILY active Not Available Not Available No t Available fluconazole 200 mg tablet TAKE 1 TABLET BY MOUTH EVERY DAY FOR 2 DAYS 07/31 completed Not Available Not Available Not Available lisinopril 20 mg tablet TAKE 1 TABLET BY MOUTH TWICE DAILY 07/31 completed Not Available Not Available Not Available clindamycin HCl 150 mg capsule TAKE ONE CAPSULE BY MOUTH EVERY 8 HOURS UNTIL ALL TAKEN 07/31 completed Not Available Not Available Not Available Diflucan 150 mg tablet Take 1 tablet every day by oral route for 3 days. 2024 active Not Available Not Available Not Avai lable clopidogrel 75 mg tablet TAKE 1 TABLET BY MOUTH DAILY active Not Available Not Available No t Available ciprofloxac in 250 mg tablet TAKE 1 TABLET BY MOUTH TWICE DAILY FOR 7 DAYS 07/31 completed Not Available Not Available Not Available Macrobid 100 mg capsule Take 1 capsule every 12 hours by oral route for 5 days. 10/05 completed Not Available Not Available Not Available OneTouch Ultra Test strips USE DIRECTED DAILY 2024 active Not Available Not Available Not Avai lable meclizine 25 mg tablet TAKE 1 TABLET BY MOUTH THREE TIMES DAILY NEEDED FOR VERTIGO active Not Available Not Available No t Available levothyroxi ne 50 mcg tablet TAKE 1 TABLET BY MOUTH EVERY DAY 2024 active Not Available Not Available Not Avai lable Cipro 500 mg tablet Take 1 tablet twice a day by oral route for 7 days. 10/22 completed Not Available Not Available Not Available aspirin 81 mg chewable tablet CHEW AND SWALLOW 1 TABLET BY MOUTH ONCE DAILY. active Not Available Not Available No t Available cefdinir 300 mg capsule TAKE 1 CAPSULE BY MOUTH TWICE DAILY 01/07 completed Not Available Not Available Not Available metformin ER 500 mg tablet,exte nded release 24 hr TAKE 2 TABLETS BY MOUTH EVERY DAY WITH A MEAL active Not Available Not Available No t Available glipizide 5 mg tablet TAKE 2 TABLETS BY MOUTH TWICE DAILY BEFORE MEALS active Not Available Not Available No t Available Sotalol AF 80 mg tablet TAKE 1 TABLET BY MOUTH TWICE DAILY active Not Available Not Available No t Available duloxetine 60 mg capsule,del ayed release TAKE 1 CAPSULE BY MOUTH EVERY DAY active Not Available Not Available No t Available BD Ultra-Fine Short Pen Needle 31 gauge x 5/16 USE TO INJECT TRESIBA DAILY DIRECTED active Not Available Not Available No t Available Lumigan 0.01 % eye drops INSTILL 1 DROP IN BOTH EYES AT BEDTIME active Not Available Not Available No t Available Eliquis 5 mg tablet take 1 tablet by mouth twice daily active Not Available Not Available No t Available Farxiga 10 mg tablet TAKE 1 TABLET BY MOUTH ONCE A DAY active Not Available Not Available No t Available Praluent Pen 150 mg/mL subcutaneou s pen injector INJECT 1 PEN UNDER THE SKIN ONCE WEEKLY EVERY 2 WEEKS active Not Available Not Available No t Available Tresiba FlexTouch U-200 insulin 200 unit/mL (3 mL) subcutaneou s pen ADMINISTE R 70 UNITS UNDER THE SKIN AT BEDTIME DIRECTED active Not Available Not Available No t Available Bydureon BCise 2 mg/0.85 mL subcutaneou s auto-inject or INJECT 2 MG UNDER THE SKIN EVERY WEEK 11/11 completed Not Available Not Available Not Available Gemtesa 75 mg tablet TAKE 1 TABLET BY MOUTH EVERY DAY active Not Available Not Available No t Available Paxlovid 300 mg (150 mg x 2)-100 mg tablets in a dose pack TK 2 NIRMATREL VIR TS AND 1 RITONAVIR T TOGETHER PO BID FOR 5 DAYS 04/01 completed Not Available Not Available Not Available Ozempic 0.25 mg or 0.5 mg (2 mg/3 mL) subcutaneou s pen injector INJECT 0.5 MG UNDER THE SKIN WEEKLY 11/14 completed see [facility] Not Available Not Available Not Available Vitals Date Recorded Body height Body mass index (BMI) Body weight Heart rate Oxygen saturation Oxygen saturation in Arterial blood by Pulse oximetry Systolic And Diastolic Provider Name and Address Organization Details Last Updated DateTime 5 157.48 cm 33.7 kg/m2 02217 g 67 /min 96 % 96 % 130/62 mm[Hg] Luna Whitlock [place] - [facility] 5 15:00:57 Date Recorded Body height Body mass index (BMI) Body weight Oxygen saturation Oxygen saturation in Arterial blood by Pulse oximetry Heart rate Systolic And Diastolic Provider Name and Address Organization Details Last Updated DateTime 5 157.48 cm 33.6 kg/m2 94774.5 6 g 96 % 96 % 77 /min 128/62 mm[Hg] Luna Whitlock MA [facility] 5 16:09:40 Date Recorded Body height Body mass index (BMI) Body weight Heart rate Oxygen saturation Oxygen saturation in Arterial blood by Pulse oximetry Systolic And Diastolic Provider Name and Address Organization Details Last Updated DateTime 5 157.48 cm 32.6 kg/m2 48068.4 4 g 62 /min 95 % 95 % 124/80 mm[Hg] Alecia Toribio MA [facility] 5 16:06:32 Date Recorded Pain severity - 0-10 verbal numeric rating [Score] - Reported Provider Name and Address Organization Details Last Updated DateTime 01/08/2024 0 Melissa Sanches [facility] 01/08/2024 14:56:07 Date Recorded Body height Body mass index (BMI) Body weight Heart rate Oxygen saturation Oxygen saturation in Arterial blood by Pulse oximetry Systolic And Diastolic Provider Name and Address Organization Details Last Updated DateTime 4 157.48 cm 33.8 kg/m2 12400.5 9 g 80 /min 96 % 96 % 152/62 mm[Hg] Jasmine Romero MA [facility] 4 14:44:37 Date Recorded Body height Body mass index (BMI) Body weight Heart rate Oxygen saturation Oxygen saturation in Arterial blood by Pulse oximetry Systolic And Diastolic Provider Name and Address Organization Details Last Updated DateTime 4 157.48 cm 33.5 kg/m2 32163.4 g 65 /min 96 % 96 % 116/82 mm[Hg] Aleciadesiree Toribio AKIN [facility] 4 15:20:57 Social History Question Answer Notes LastModified by Organizat ion Details LastModified Time Tobacco Smoking Status Never Smoker Jasmine Gutierrez MA [facility] 08/01/2023 14:26:06 Do You Have An Advance Directive? No Patient Stated She Is Working On One. Information not available 01/08/2024 Are You Blind Or Do You Have Difficulty Seeing? No Information not available 08/01/2023 What Is Your Level Of Caffeine Consumption? None Information not available 01/08/2024 In The 14 Days Before Symptom Onset, Have You Had Close Contact With A Laboratory-confir med COVID-19 While That Case Was Ill? No Information not available 11/28/2023 In The 14 Days Before Symptom Onset, Have You Had Close Contact With A Person Who Is Under Investigation For COVID-19 While That Person Was Ill? No Information not available 11/28/2023 Have You Been To An Area Known To Be High Risk For COVID-19? No Information not available 11/28/2023 Are You Deaf Or Do You Have Serious Difficulty Hearing? No Information not available 08/01/2023 What Type Of Diet Are You Following? REGULAR Tries To Watch Carbs Information not available 01/08/2024 What Is The Highest Grade Or Level Of School You Have Completed Or The Highest Degree You Have Received? [id number] Information not available 01/08/2024 Are There Any Guns Present In Your Home? No Information not available 01/08/2024 In The Past 7 Days, How Many Days Did You Exercise? 0 Information not available 01/08/2024 In The Past 7 Days, How Much Pain Have You Perry? Some Information not available 01/08/2024 In General, Would You Say You Health Is: Good Information not available 01/08/2024 How Would You Describe The Condition Of Your Mouth And Teeth- Including False Teeth Or Dentures? Good Information not available 01/08/2024 Each Night, How Many Hours Of Sleep Do You Get? 10 Information no t available 01/08/2024 Has Anyone Ever Told You That You Snore? Yes Information not available 01/08/2024 In The Past 7 Days, How Often Have You Perry Sleepy In The Daytime? Sometimes Information not available 01/08/2024 # Alcohol Drinks Per Week 0 Information not available 01/08/2024 What Was The Date Of Your Most Recent Tobacco Screening? 11/18/2024 [email or web address] Information not available 11/18/2024 What Is Your Relationship Status? Information not available 08/01/2023 Do You Use Your Seat Belt Or Car Seat Routinely? Yes Information not available 08/01/2023 Do You Have Smoke And Carbon Monoxide Detectors In Your Home? Yes Information not available 08/01/2023 Do You Use Sunscreen Routinely? No Information not available 01/08/2024 Has Tobacco Cessation Counseling Been Provided? No Information not available 01/08/2024 Sex: Female Functional Status Question Answer Note LastModified by Organizat ion Details LastModified Time Do you use any illicit or recreational drugs? No Information not available 08/01/2023 Do you or have you ever used any other forms of tobacco or nicotine? No Information not available 08/01/2023 What is your level of alcohol consumption? Occasional Information not available 08/01/2023 Are you currently employed? No Retired Information not available 01/08/2024 Are you able to care for yourself independently? Yes Information not available 08/01/2023 What is your exercise level? None Information not available 08/01/2023 Mental Status Question Answer Note LastModified by Organization D etails LastModified Time Do you feel stressed (tense, restless, nervous, or anxious, or unable to sleep at night)? [id number] [email or web address] Information not available 01/08/2024 Family History Relationship Description Onset Age of this Age Resolved Age Notes LastModified by Organization Details LastModified Time Mother Hypertensive disorder 85 [email or web address] Not available 07/06 14:25:14 Father Heart disease 68 [email or web address] Not available 07/06 14:25:33 Notes:No family history cardenas ge, me/rma Medical History Condition Response Diabetes Y Anxiety Disorder Y Have you had a mammogram in the last yea r? N Heart Attack (MS) Y Atrial Fibrillation Y High Blood Pressure Y Stroke Y Allergies Y High Cholesterol Y Gynecological History Statement/Question Response If Post Menopausal, Age at Menopause 52 Obstetrics History GPAL:G 0 P 0 0 0 0 Immunizations Vaccine Type Date Status Note Provider Nam e and Address Organization Details Recorded Time Influenza, high-dose, quadrivalent, PF 3 completed Mckenzie Haji [place] null, [place] - [facility] 11/07/2023 15:58:32 Influenza, high-dose, quadrivalent, PF 0 completed AKIN Dee, [place] [facility] 11/07/2023 15:58:32 Influenza, high-dose, quadrivalent, PF 1 [place] AKIN [place] [facility] 11/07/2023 15:58:32 COVID-19, mRNA, LNP-S, PF, 30 mcg/0.3 mL dose 1 completed AKIN [place] [facility] 11/07/2023 15:58:32 COVID-19, mRNA, LNP-S, PF, 30 mcg/0.3 mL dose 1 [place] AKIN [place] [facility] 11/07/2023 15:58:32 COVID-19, mRNA, LNP-S, PF, 30 mcg/0.3 mL dose, easton-sucrose 2 completed AKIN [place] [facility] 11/07/2023 15:58:32 RSV, recombinant, protein subunit RSVpreF, adjuvant reconstituted, 0.5 mL, PF 3 completed AKIN [place] [facility] 11/07/2023 15:58:32 COVID-19, mRNA, LNP-S, PF, easton-sucrose, 30 mcg/0.3 mL 3 completed AKIN [place] [facility] 11/07/2023 15:58:32 pneumococcal polysaccharide PPV23 3 completed AKIN [place] [facility] 11/07/2023 15:58:32 influenza, unspecified formulation 8 completed [place] [facility] 11/07/2023 15:58:32 Pneumococcal conjugate PCV 13 6 completed [place] [facility] 11/07/2023 15:58:32 zoster live 5 completed [place]IN [place] [facility] 11/07/2023 15:58:32 Influenza, high-dose, trivalent, PF 4 completed Mckenzie Haji [place] [facility] 11/07/2023 15:58:32 Influenza, high-dose, trivalent, PF 7 completed Mckenzie H[place] [facility] 11/07/2023 15:58:32 Influenza, high-dose, trivalent, PF 5 completed Mckenzie [place] [facility] 11/07/2023 15:58:32 Influenza, high-dose, trivalent, PF 7 completed Mckenzie H[place] [facility] 11/07/2023 15:58:32 Influenza, high-dose, trivalent, PF 6 completed Mckenzie H[place] [facility] 11/07/2023 15:58:32 Influenza, high-dose, trivalent, PF 9 completed AKIN [place] [facility] 11/07/2023 15:58:32 Influenza, split virus, trivalent, preservative 4 completed AKIN [place] [facility] 11/07/2023 15:58:32 COVID-19, mRNA, LNP-S, PF, easton-sucrose, 30 mcg/0.3 mL 4 completed AKIN Estrada, [place] - [facility] 08/19/2024 16:05:25 Influenza, high-dose, trivalent, PF 4 completed AK[place] [facility] 08/19/2024 16:05:25 Tdap 5 completed Humphrey Britt MD Attn: Accounting,[address] [place], [address], [place] [facility] 08/19/2024 20:39:23 Past Encounters Encounter ID Performer Location Encounter Start Date Encounter Closed Date Diagnosis/Indication Diagnosis SNOMED-CT Code Diagnosis ICD10 Code Diagnosis Note [id number] Humphrey Britt MD [facility] (Adult Med) [address] [place] [address] [phone] 0 08/01/2023 13:55:49 08/01/2023 15:21:25 Type 2 diabetes mellitus 61780736 E11.9 Lumbar radiculopathy 128 172236 M54.16 Liver func tion tests outside reference range 470166481 R94.5 History of cerebrovascular accident without residual deficits 842624506 Z86.73 Atrial fibrillation 4943 6004 I48.91 Hyperlipidemia 68238805 E78.5 Essential hypertension 86488596 I10 Anxiety 39079947 F41.9 [id number] MD [facility] (Adult Med) [address] [place] [address] [id number] 0 11/07/2023 15:48:30 11/07/2023 17:44:16 Obesity 073280398 E66.8 Abdominal pain 13420930 R10.9 Type 2 liberty betes mellitus 68302614 E11.9 [id number] MD [facility] (Adult Med) [address] [place] [address] [id number] 0 11/28/2023 13:59:05 11/28/2023 15:13:28 Obesity 431534813 E66.8 Abdominal pain 80076461 R10.9 Type 2 liberty betes mellitus 29134247 E11.9 Candidiasis of vagina 72 150078 B37.31 [id number] MD [facility] (Adult Med) [address] [place] [address] [id number] 0 01/01/2024 14:42:55 01/01/2024 16:05:29 Essential hypertension 91955210 I10 Hyperlipidemia 74972960 E78.5 Liver func tion tests outside reference range 516310885 R94.5 [id number] MD [facility] (Adult Med) [address] [place] [address] [id number] 01/08/2024 14:32:23 01/08/2024 15:44:20 Adult health examination 799353030 Z00.00 Health Risk Assessment collected and reviewed [facility] 764 19236 Z78.0 [id number] MD [facility] (Adult Med) [address] [place] [address] [id number] 04/01/2024 14:59:16 04/01/2024 16:32:31 Body mass index 30+ - obesity 738130003 Z68.33 Obesity 351621074 E66.9 Lumbar radiculopathy 128 133573 M54.16 Essential hypertension 82622368 I10 Atrial fibrillation 4943 6004 I48.91 Hyperlipidemia 89250257 E78.5 Type 2 liberty betes mellitus 50335901 E11.9 [id number] Humphrey Britt MD [facility] (Adult Med) [address] [place] [address] [id number] 0 05/21/2024 14:43:58 05/21/2024 15:15:12 Body mass index 30+ - obesity 986037977 Z68.33 Obesity 991167815 E66.9 Vertigo 058975218 R42 Dysuria 37592725 R30.0 [id number] MD [facility] (Adult Med) [address] [place] [address] [id number] 0 08/19/2024 15:29:58 08/19/2024 17:06:16 Body mass index 30+ - obesity 177509194 Z68.33 Obesity 885663867 E66.9 Administra tion of diphtheria, pertussis, and tetanus vaccine 514541033 Z23 Essential hypertension 83556250 I10 Type 2 liberty betes mellitus 88753719 E11.9 Hyperlipidemia 79442353 E78.5 Atrial fibrillation 4943 6004 I48.91 Anxiety 90646606 F41.9 Lumbar radiculopathy 128 379066 M54.16 Liver func tion tests outside reference range 600645444 R94.5 [id number] Humphrey Britt MD [facility] (Adult Med) [address] [place] [address] [id number] 0 11/18/2024 14:36:55 11/18/2024 16:38:30 Body mass index 30+ - obesity 323765253 Z68.32 Obese class I 5854077245 57602 E66.811 Essential hypertension 85699812 I10 Hyperlipidemia 27294816 E78.5 Atrial fibrillation 4943 6004 I48.91 Anxiety 31008067 F41.9 Type 2 liberty betes mellitus 97360942 E11.9 Liver func tion tests outside reference range 851894336 R94.5 Lumbar radiculopathy 128 433435 M54.16 Health Concerns Section Related Observation LastModified by Organization Detai ls LastModified Time None Recorded Concern Status LastModified by Organization Details LastModified Time None Recorded Advance Directives Directive N: Patient stated she is wor [place] on one. Payers Insurance Date Sequence Insurance Name Policy Number Policy Rao Covered Member ID Rao Member ID Guarantor Name 11/15/2024 1 [employer] (MEDICARE REPLACEMENT/ ADVANTAGE - PPO) [id number] Nayeli Delay [id number] Nayeli Delay Notes Date Note Type Note Provider Name and Address Organization Details Recorded Time 01/08/2024 text/html MAW 2Reported by PatientSocial/Behavior al HistoryFor fracture risk, patient reportshistory of fractures (finger & foot)but reportsno sudden unexplained fractures. For diet and nutrition, patient reportshealthy diet.Mental Status:For concentration and memory, patient reportsforgetting wordsbut reportsno decreased concentrating abilityandno memory lapses or loss. For speech/motor difficulties, patient reportsno speech difficulties,no difficulty expressing formulated concepts,no difficulty with fine manipulative tasks,no difficulty writing/copying,no slowed reaction time, anddoes not knock things over when trying to pick them up.Functional AbilityFor vision, patient reportsworse near (glasses)anddifficulty seeing in bright light. For hearing, patient reportsno loss of hearing. For activities of daily living, patient reportsable to bathe with limited or no assistance,able to contol urination and bowels,able to dress with limited or no assistance,able to feed self with limited or no assistance,able to get out of chair or bed with limited or no assistance,able to groom with limited or no assistance, andable to toilet with limited or no assistance. For instrumental activities of daily living, patient reportsable to do house work with limited or no assistance,able to grocery shop with limited or no assistance,able to manage medications with limited or no assistance,able to manage money with limited or no assistance,able to prepare meals with limited or no assistance, andable to use the phone with limited or no assistance. For falls risk assessment, patient reportsno frequent falls while walking,no fall since last visit,no dizziness/vertigo, andfall(s) in the past year 1. For home safety, patient reportsno unsafe gloria hazzards,no unsafe stairs,working smoke/co detectors,practicing 'safer sex',no fire arms,has hand bars in the bathroom/shower, andgood lighting in the home. Humphrey Britt MD Attn: Accounting,[address] , [place], [address], [facility] 01/08/2024 23:22:42 04/01/2024 text/html diabetes needs A1c no polyphagia polydipsia.Hypertensio n no headache or dizziness blood pressure 116/82obesity could do better with caloric intakeatrial fibrillation no headache dizziness palpitations no stroke-like symptomshyperlipidemia taking her atorvastatin but she can do better with regards to intake of saturated fatlumbar radiculopathy still bothers her a little bit she says that insurance told her she could have a scooter right now she walks with a walkerhepatic steatosis really not trying to lose weightsuffered left ankle sprain was in a boot following up with ortho Humphrey Britt MD Attn: Accounting,[address] [facility], [place], [address], [facility] 04/05/2024 15:56:14 05/21/2024 text/html she has been having some problems with vertigo especially when she lies down he rolls over in bed. She has also been having some dysuria without any blood in her urine or lower back pain no fever chills nausea or vomiting she has had no blurred vision and there was no head Humphrey Britt MD Attn: Accounting,[address] [facility], [place], [address], [facility] 05/24/2024 21:11:56 08/19/2024 text/html Here for regular follow up LFTs been outside range and the need to be checked lumbar radiculopathy appears to be stable at this time she does walk with a walker anxiety doing fine atrial fibrillation asymptomatic hyperlipidemia she can do better with regards to fats diabetes needs A1c but she uses little bit more sugar than she should hypertension has been controlled Humphrey Britt MD Attn: Accounting,[address] [facility], [place], [address], [facility] 08/19/2024 20:41:08 11/18/2024 text/html Her blood pressure has been doing fine no AFib problems problem with the diabetes that she just pretty much eats whatever she wants she has had elevated LFTs secondary to hepatic steatosis before and she has been asymptomatic lumbar radiculopathy seems to be doing fine she struggles with some urinary incontinence and recurrent urinary tract infections her last A1c was about 10 and she just has poor insight she states that she is 84 she is going to eat what she wants Humphrey Britt MD Attn: Accounting,[address] [place], [address], [facility] 11/18/2024 21:56:39 OBGyn Episode No OBEpisode recorded.
--- OUTSIDE RECORDS SUMMARY | 2024-11-28 13:19 | XMS_ITS | Encounter Summary ---
Author Organization [facility] Address [address] [place] [address] Care Team Providers Care Fish Stringer Assembler Name Role Phone Dean Britt MD Primary Care Provider [phone] Encounter Details Date Type Department Care Team (Late st Contact Info) Description 08/09/2018 [facility] DEPT Unknown, Provider Social History Tobacco Use Types Packs/Day Years Used Date Smoking Tobacco: Never Smokeless Tobacco: Never Alcohol Use Standard Drinks/Week Comments No 0 (1 standard drink = 0.6 oz pur e alcohol) Rarely Comments Unknown Sex and Gender Information Value Date Recorded Sex Assigned at Not on file 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 Answer Date of Assessment Author Yes 07/31/2018 9:15 PM Arnel Merrill RN * Is person blind or have serious difficulty seeing? Answer Date of Assessment Author No 07/31/2018 9:15 PM Arnel Merrill RN * Does person have serious difficulty walking/climbing stairs? Answer Date of Assessment Author No 07/31/2018 9:15 PM Arnel Merrill RN * Does person have difficulty dressing/bathing? Answer Date of Assessment Author No 07/31/2018 9:15 PM Arnel Merrill RN * Does person have difficulty doing errands alone? Answer Date of Assessment Author No 07/31/2018 9:15 PM Arnel Merrill RN documented as of this encounter Mental Status * Does person have difficulty concentrating/remembering/making decisions? Answer Entry Date Author No 07/31/2018 9:15 PM CDT Arnel Quinn RN documented in this encounter Plan of Treatment Not on file documented as of this encounter Visit Diagnoses Not on filedocumented in this encounter Care Teams Fish Stringer Assembler Relationship Specialty Start Date End Date Dean Britt MD PCP - General 01/17/18 documented as of this encounter
[2024-11-28 13:46] LABS: Estimated Glomerular Filt Rate 48
== END 2024-11-28 13:15 | disposition home or self-care (01) ==
PROVIDERS: PCP Internal Medicine; Visit Provider Physician Assistant Medical
DX: N30.90 Cystitis, unspecified without hematuria (principal); N20.0 Calculus of kidney; K80.20 Calculus of gallbladder without cholecystitis without obstruction; S32.020A Wedge compression fracture of second lumbar vertebra, initial encounter for closed fracture; X58.XXXA Exposure to other specified factors, initial encounter; D35.02 Benign neoplasm of left adrenal gland; R31.29 Other microscopic hematuria
CPT/HCPCS: 74178; Q9967

== ENCOUNTER 2025-02-06 16:28 | Outpatient (CLI) | payer MEDICARE, SELFPAY ==
--- OUTSIDE RECORDS SUMMARY | 2009-12-23 04:30 | XMS_ITS | Continuity of Care Document ---
Author Organization [facility] Address [address] [place] [address] Phone Care Team Providers Care Prestidigitator Name Role Phone Aurora Watkins Unavailable Unavailable Procedures Procedure Date Office/outpatient Visit, Est Optic Nerve Head Eval IPO Reduced 15% Dilated Retinal Exam W Interpretation Au Visual Field Examination-Professional Ap Visual Field Examination(s) Office/outpatient Visit, Est Optic Nerve Head Eval IPO Reduced 15% Office/outpatient Visit, Est Optic Nerve Head Eval IPO Reduced 15% Dilated Retinal Exam W Interpretation Ju Visual Field Examination-Professional Ma Visual Field Examination(s) Office/outpatient Visit, Est Optic Nerve Head Eval Fundus Photography W/ Report Office/outpatient Visit, Est Optic Nerve Head Eval Visual Field Examination(s) Office/outpatient Visit, Est Eye Exam Established Pt Visual Field Examination(s) Advance Directives Directive Yes / No Effective Date File Name No Information Encounters Encounter Description Practice Location Reason(s) For Visit Diagnoses Date Provider Providers Copied on Encounter Office/outpat ient Visit, [facility], [address], [place], [place], [id number], [place] tel:[phone] [facility] No Information 9-201 0 June Vazquez [address] [facility] , [address], [place], [place], [facility], . tel:[phone] [facility], [address] [place] [address] [address], [place], [place], [id number], tel:[phone] [facility] No Information Apr-0 8-201 0 June Vazquez [address] , [address], [place], [place], [facility], . tel:[phone] Referring Provider: Aurora Lockwood, [facility] [address], [place], [place], [facility]. tel:[phone] [facility], [address] [place] [address] [address], [place], [place], [id number], tel:[phone] [facility] No Information 0 2-201 0 June Vazquez [address] [facility] , [address], [place], [facility], [place]. tel:[phone] Referring Provider: Aurora Lockwood, [facility] [address], [place], [facility]. tel:[phone] Office/outpat ient Visit, [facility], [address] [place] [address] [address], [place], [place], [id number], [place] tel:[phone] [facility] No Information 2-200 9 June Vazquez [address] , [address], [place], [place], [facility], [place]. tel:[phone] Office/outpat ient Visit, [facility], [address] [place] [address] [address], [place], [place], [id number], [place] tel:[phone] [facility] No Information 0 9-200 9 June Vazquez [address] [facility] , [address], [place], [facility], [place]. tel:[phone] [facility], [address] [place] [address] [address], [place], [place], [id number], tel:[phone] [facility] No Information 9-200 9 June Simon. [address] [facility] , [address], [place], [facility], . tel:[phone] Referring Provider: Aurora Lockwood, [address], [place], [facility]. tel:[phone] [facility], [address] [place] [address] [address], [place], [place], [address], tel:[phone] [facility] No Information 2200 9 June Simon. [facility] , [address], [place], [facility], . tel:[phone] Referring Provider: Aurora Lockwood, [facility] [address], [place], [facility]. tel:[phone] Office/outpat ient Visit, [facility], [address] [place] [address] [address], [place], [place], [id number], tel:[phone] [facility] No Information 8 June Simon. [facility] , [address], [place], [facility], [place]. tel:[phone] Referring Provider: Aurora Lockwood, [address], [place], [facility]. tel:[phone] Office/outpat ient Visit, [facility], [address] [place] [address] [address], [place], [place], [address], tel:[phone] [facility] No Information 8 June Simon. [address] , [address], [place], [facility], . tel:[phone] [facility], [address] [place] [address] [address], [place], [place], [id number], [place] tel:[phone] [facility] No Information Mar-0 6-200 8 June Vazquez [address] , [address], [place], [facility], . tel:[phone] Referring Provider: Aurora Lockwood, [address], [place], [facility]. tel:[phone] Office/outpat ient Visit, [facility], [address] [place] [address] [address], [place], [place], [id number], [place] tel:[phone] [facility] No Information Nov-0 8-200 7 June Simon. [address], [place], [facility], [place]. tel:[phone] [facility], [address] [place] [address] [address], [place], [place], [id number], [place] [phone] [facility] No Information Cole-1 9-200 7 June Vazquez [address], [place], [facility], [place]. tel:[phone] [facility], [address] [place] [address] [address], [place], [place], [id number], [place] [phone] [facility] No Information Mar-2 2-200 7 June Vazquez [address], [place], [facility], [place]. tel:[phone] Referring Provider: Aurora Lockwood, [address], [place], [facility]. tel:[phone] Family History Family Member Type Diagnosis Age At Onset No Information Payers Payer name Insurance type Covered libertarian ID Authoriza tion(s) [place] [id number] Social History Type Description Quantity Date Captured Comments Sex Female Smoking Status No Information Chief Complaint And Reason For Visit No Information Reason For Referral Reason For Referral No Information History Of Present Illness Encounter Date Complaint History Of Prese nt Illness No Information Functional Status Date Functional Assessmen t No Information Instructions Date Instruction Additional Infor mation No Information Assessments Type Assessment Date No Information Patient Care Teams Name Effective Dates (start - stop) Status Members No Information
--- NOTE | ~2025-02-06 | XR_ITS ---
EXAMINATION: XR abdomen/kub 1V, 02/06/2025 16:45 CDT HISTORY: Kidney stone on left side COMPARISON: No comparisons available. Technique: 3 view. Findings: Bowel gas pattern unremarkable. No obstruction.Moderate fecal content limits evaluation. Large left mid pole renal calculus 1.1 x 1 cm. Right kidney midpole calculus 2 x 3 mm. Moderate degenerative changes of the visualized lumbar spine. Impression: 1. Renal calculi detailed above. Reviewed, dictated and finalized at location P. Impression: 1. Renal calculi detailed above.
--- OUTSIDE RECORDS SUMMARY | 2025-02-06 16:32 | XMS_ITS | Clinical Summary ---
Author Organization [facility] Address [address] [place] [address] Care Team Providers Care Interior Decorator Paperhanging Name Role Phone Dean Britt MD Primary Care Provider [phone] Source Comments [facility],non-owned Affiliates and Associated Physician Practices is amultiple site organization consisting of ambulatory clinics and hospital sitesin [place], [place], [place] and [place]. This disclosure is being madepursuant to the Care Everywhere program and may not contain all information available regarding this patient. 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 Gender Identity Not on file Sexual Orientation [...] Oxygen Concentration 21% 06/15/2010 1 0:35 AM MATERIALS PLANNER/PRODUCTION PLANNER Weight 78.5 kg (173 lb) 10/23/2018 12:06 [...] 08/01/2018, 11/30/2017 DIABETES-SERUM CREATININE 08/28/20192018, 11/30/2017, 06/14/2010 DEPRESSION SCREENING 05/07/2024 DIABETES - URINE PROTEIN SCREENING 05/07/2024 COVID-19 VACCINE (1 - season) 2025 INFLUENZA VACCINE (#1) 2025 8, 02/27/2017, 02/20/2014, [...] PANEL (CALCIUM TOTAL) (08/27/2018 8:43 AM CDT) [facility] Glucose 212(H) 74 - 106 mg/dL 08/27/2018 9:03 AM CDT [facility] Sodium 136 136 - 145 mmol/L 08/27/2018 9:03 AM CDT [facility] Potassium 4.5 3.5 - 5.1 mmol/L 08/27/2018 9:03 AM CDT [facility] Chloride 102 98 - 107 mmol/L 08/27/2018 9:03 AM CDT [facility] CO2 23 23 - 31 mmol/L 08/27/2018 9:03 AM CDT [facility] Calcium 9.1 8.4 - 10.2 mg/dL 08/27/2018 9:03 AM CDT [facility] Anion Gap 11 8 - 16 mmol/L 08/27/2018 9:03 AM CDT [facility] BUN 17 9.8 - 20.1 mg/dL 08/27/2018 9:03 AM CDT [facility] Creatinine 0.52(L) 0.55 - 1.02 mg/dL 08/27/2018 9:03 AM CDT [facility] eGFR by MDRD >60 mL/min/1.7 3m2 08/27/2018 9:03 AM CDT [facility] eGFR by MDRD >60 mL/min/1.7 3m2 08/27/2018 9:03 AM CDT [facility] Blood BLOOD SPECIMEN / Unknown Venipuncture / Unknown 08/27/2018 8:43 AM CDT 08/27/2018 8:44 AM CDT Davi Briceno MD LAB - CHEMISTRY ORDERABLES Fi nal Result Performing Organization Address [facility] de Phone Number [facility] [address] [place] [address] * (ABNORMAL) HEMOGLOBIN A1C (08/01/2018 4:16 AM CDT) [facility] Hemoglobin A1c 7.5(H) 4.0 - 6.1 % 08/01/2018 6:06 AM CDT [facility] Estimated Average Glucose 169 mg/dL 08/01/2018 6:06 AM CDT [facility] Blood BLOOD SPECIMEN / Unknown Venipuncture / Unknown 08/01/2018 4:16 AM CDT 08/01/2018 5:48 AM CDT Narrative [facility] - 08/01/2018 6:06 AM CDT Attention clinician: Reference Range has changed. Davi Briceno MD LAB - CHEMISTRY ORDERABLES Fi nal Result Performing Organization Address [facility] de Phone Number [facility] [id number] [place] [phone] from Last 3 Months or Most Recently Relevant to Health Maintenance Insurance [facility] MANAGED MEDICARE ADV [facility] MANAGED MEDICARE ADV Advance Directives * Full Code (Latest Code Status on File) Date Activated Date Inactivated Comments 07/31/2018 8:56 PM 08/02/2018 5:57 PM * Full Code Date Activated Date Inactivated Comments 06/13/2010 10:48 PM 06/16/2010 12:33 AM Care Teams Interior Decorator Paperhanging Relationship Specialty Start Date End Date Dean Britt MD PCP - General 01/17/18
--- OUTSIDE RECORDS SUMMARY | 2025-02-06 16:32 | XMS_ITS | Encounter Summary ---
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
== END 2025-02-06 16:29 | disposition home or self-care (01) ==
PROVIDERS: PCP Internal Medicine; Visit Provider Urology
DX: N20.0 Calculus of kidney (principal)
CPT/HCPCS: 74018